=== PATIENT | female | born 1975 | race Hispanic/Latino ===

== ENCOUNTER 2017-03-15 09:14 | Day surgery (SDC) | payer MEDICARE ==
[2017-03-02 10:09] VITALS: BMI 37.3
[2017-03-15] MEDS ORDERED: Bupivacaine 0.5% Inj(30mL) ONE (10:04)
[2017-03-15 10:10] LABS: PH,URINE 5.5 (4.7-8.0); URINE BILIRUBIN NEGATIVE (NEGATIVE); URINE BLOOD SMALL (NEGATIVE); URINE GLUCOSE (UA) NEGATIVE (NEGATIVE); URINE KETONE NEGATIVE (NEGATIVE); URINE LEUKOCYTE ESTERASE NEGATIVE Leu/uL (NEGATIVE); URINE PROTEIN NEGATIVE mg/dL (<30 mg/dL); URINE UROBILINOGEN 0.2 E.U./dL (<1 E.U./dL)
[2017-03-15 10:13] LABS: URINE APPEARANCE SL CLOUDY (CLEAR); URINE COLOR YELLOW (YELLOW)
[2017-03-15 10:18] LABS: URINE RBC 0 - 2 /hpf (0-2)
[2017-03-15] MEDS ORDERED: Propofol 10 mg/ml Inj (20 ML) ONE ×2 (11:03→13:52)
[2017-03-15] MEDS ORDERED: Midazolam 2 MG/2 ML VIAL ONE (11:03)
[2017-03-15] MEDS ORDERED: Rocuronium 10 mg/ml (5 ml) ONE (11:05)
[2017-03-15] MEDS ORDERED: Clindamycin 150 mg/mL Inj ONE (11:36)
[2017-03-15] MEDS ORDERED: Morphine 1 mg/ml preservative-free Inj(Duramorph) ONE (13:29)
[2017-03-15] MEDS ORDERED: Neostigmine Methylsulfate 3mg/3ml Syringe IV ONE (13:33)
[2017-03-15] MEDS ORDERED: Lactated Ringer's 1,000 ML IV SCH (14:00)
--- NOTE | 2017-03-15 14:13 | PCM.SURG1 ---
Surgeon's Initial Post Op Note - Surgeon's Notes Surgeon: Denia Winter MD Carton Marker Machine: Angy Clarke PA-C Type of Anesthesia: General Endo Anesthesia Administered By: Dr. Isabel Pre-Operative Diagnosis: Right knee patellofemoral joint DJD Operative Findings: Tourniquet 72min@300mmHg Post-Operative Diagnosis: same Operation Performed: Right knee patellofemoral joint replacement. decompression lateral meniscal cyst. lateral retinacular release Specimen/Specimens Removed: bone Estimated Blood Loss: EBL {In ML}: 40 Blood Products Given: N/A Drains Used: No Drains Post-Op Condition: Fair Date of Surgery/Procedure: 03/15/17 Time of Surgery/Procedure: 14:12
[2017-03-15] MEDS ORDERED: Oxycodone/Acetaminophen 5/325 mg Tab PO PRN ×2 (14:15→14:25)
[2017-03-15 14:27] VITALS: TEMP 98.1
[2017-03-15] MEDS: HYDROmorphone 0.5 mg/0.5 ml ISec IVP PRN ×3 (14:45→15:20)
[2017-03-15] MEDS ORDERED: HYDROmorphone 0.5 mg/0.5 ml ISec ONE ×3 (14:46→15:21)
--- NOTE | 2017-03-15 15:15 | RAD ---
PROCEDURE: Right Knee Radiographs. HISTORY: s/p PF replacement, in PACU COMPARISON: None. FINDINGS: BONES: There is a partial knee replacement along the anterior lateral femoral condyle JOINTS: Normal. No osteoarthritis. JOINT EFFUSION: None. OTHER FINDINGS: None. IMPRESSION: Negative study
[2017-03-15] MEDS ORDERED: Oxycodone/Acetaminophen 5/325 mg Tab ONE (15:52)
[2017-03-15 16:15] VITALS: BP 111/76; PULSE 92; RESP 18; O2SAT 96
[2017-03-15] MEDS ORDERED: Bupivacaine-Epi 0.25%-1:200,000 PF Inj ONE (16:36)
--- NOTE | 2017-03-16 00:25 | OP ---
PROCEDURE DATE: 03/15/2017 PREOPERATIVE DIAGNOSIS: Right knee patellofemoral arthritis. POSTOPERATIVE DIAGNOSES: Right knee patellofemoral arthritis and right lateral meniscal cyst. PROCEDURE: Right knee patellofemoral arthroplasty with decompression of lateral meniscal cyst. SURGEON: René Winter MD GAUGER DELIVERY: Eliazar Hwang PA-C. Ms. Hwang was present throughout the entire case and assisted in the patient's positioning, retraction during the case and wound closure. TYPE OF ANESTHESIA: General. COMPLICATIONS: None. ESTIMATED BLOOD LOSS: 40 mL. IMPLANT: Waqas, patellofemoral arthroplasty. INDICATION FOR PROCEDURE: This is a 41-year-old female with longstanding anterior right knee pain. Clinical examination was consistent with peripatellar tenderness to palpation, pain with patellofemoral grind, pain at the extremes of knee flexion and full extension. Radiographic examination was consistent with patellofemoral arthrosis. After appeared a failed nonsurgical management including injection, steroid, as well as viscosupplementation injection, as well as medication recommendations were for a right patellofemoral arthroplasty. The risks, benefits, and alternatives for procedure were discussed with the patient and informed consent was obtained. DESCRIPTION OF PROCEDURE: After the surgical site was finally identified in the preoperative holding area, the patient was taken to the operating room and placed supine on the operating table. After administration of general anesthesia, the patient received 900 mg of clindamycin IV. A tourniquet was placed about the right thigh. Care was taken to make sure all bony prominences and nerves were well padded and protected. Venodyne boot was placed in the left lower extremity and the right lower extremity was prepped and draped in usual sterile fashion. The right lower extremity was examined and the tourniquet was inflated. An approximately 10 cm longitudinal midline incision was made. Soft tissues were dissected down to the knee joint and the medial parapatellar arthrotomy was performed being careful not to injure the medial femoral condyle or the medial compartment structures including the meniscus and intrameniscal ligament. Once the knee joint was adequately exposed, the *------* was used to jude our rotation, and this was also confirmed using a trans-epicondyle access, and once this was marked out on the distal femur, step drill was used to drill into the medullary canal and distal femur. The intramedullary guide was inserted and satisfied with the rotation this was pinned into place. Our anterior femoral cut was performed. Once this was done the cut block was removed and our femoral trochlear component was sized. Satisfied with the size, the jig was pinned into place and the distal femur was milled using a halley and our lug holes were drilled. The jig was removed and a trial implant was inserted and then packed into place. The trial was noted to sit distally, flushed with the articular cartilage and flat on the anterior surface of the distal femur. No overlap was appreciated. Our attention was then directed to the patella. The thickness of the patella was measured and a patellar resection was performed. The patellar button was sized and the holes for patellar button were then drilled. A trial patella was then placed and the knee was taken through a range of motion. Patella was noted to have some lateral tilt and this was corrected by performing a lateral retinacular release. At this point, the trial component was removed and the knee joint was pulsed lavaged with antibiotic saline solution. The bony structures were dried and the patella and femoral components were cemented into place. Care was taken to remove all excess cement. Once cement was harden and the wound was inspected for any debris and once again irrigated. The knee was taken through a range of motion and was noted to track normally in the groove. No evidence of any subluxation was appreciated. At this point, the arthrotomy was closed using number 1 Vicryl suture, subcutaneous tissue was closed using 0 Vicryl and 2-0 Vicryl and the skin was closed using the conor. Sterile dressing was applied and knee immobilizer was placed. The patient was awakened from procedure and taken to the recovery room in stable and satisfactory condition. René Winter MD
== END 2017-03-15 16:48 | disposition home or self-care (01) ==
LOC: OR 09:14 → SDS 09:14
PROVIDERS: ATTEND Orthopaedic Surgery
DX: M17.11 Unilateral primary osteoarthritis, right knee (principal); E11.9 Type 2 diabetes mellitus without complications; E66.9 Obesity, unspecified; M23.000 Cystic meniscus, unspecified lateral meniscus, right knee; N28.9 Disorder of kidney and ureter, unspecified; K21.9 Gastro-esophageal reflux disease without esophagitis; G43.909 Migraine, unspecified, not intractable, without status migrainosus; F31.9 Bipolar disorder, unspecified; Z88.1 Allergy status to other antibiotic agents; Z88.0 Allergy status to penicillin; Z88.2 Allergy status to sulfonamides; Z90.49 Acquired absence of other specified parts of digestive tract; Z68.37 Body mass index [BMI] 37.0-37.9, adult
CPT/HCPCS: 27599; 73560; 81001; 84703; 88304; 88311; 97116; 97162; G8978; G8979; G8980; J0131; J1100; J1170; J2250; J2405; J2704; J2710; J3010; J7120

== ENCOUNTER 2017-04-02 14:55 | Inpatient (IN) | payer MEDICARE ==
[2017-04-02] MEDS ORDERED: Morphine 4 mg/ml ISec IVP STA (15:30)
[2017-04-02 16:26] LABS: BASO # 0.02 K/mm3 (0.0-2.0); BASO % 0.1 % (0.0-3.0); EOS % 0.2 % (1.5-5.0); GRAN # 13.47 (1.4-6.5); GRAN % 89.9 % (50.0-68.0); HEMATOCRIT 32.6 % (36.0-48.0); LYMPH # 0.6 (1.2-3.4); LYMPH % 3.7 % (22.0-35.0); MEAN CELL VOLUME 82.7 fl (80.0-105.0); MEAN CORPUSCULAR HEMOGLOBIN 26.4 pg (25.0-35.0); MEAN CORPUSCULAR HGB CONC 31.9 g/dl (31.0-37.0); MEAN PLATELET VOLUME 8.9 fl (7.0-11.0); MONO # 0.9 (0.1-0.6); MONO % 6.1 % (1.0-6.0); PLATELET COUNT 217 10^3/uL (120.0-450.0)
--- NOTE | 2017-04-02 16:28 | ED PDOC ---
Arrival/HPI - General Historian: Patient <Rachael Pendleton A - Last Filed: 04/02/17 19:42> <Andrea,I'Clevelandmendez - Last Filed: 04/03/17 18:39> - General Chief Complaint: Lower Extremity Problem/Injury Time Seen by Provider: 04/02/17 15:06 - History of Present Illness Narrative History of Present Illness (Text): 04/02/17 16:19 42yo female with PMhx of Diabetes biba for right knee pain and drainage from the incision site. Pt notes that she had right knee surgery on 03/15/17. Allie was removed on Tuesday and she started having the drainage and worsening pain same day. States she saw the orthopedist, Dr. Winter for the worsening pain and drainage and was told that is okay. She came to ED today because of the persistent pain. States painful to bear weight. Notes that she takes Tramadol at home without relieve. She denies fever, chills, any other complaint. (Rachael Pendleton A) Past Medical History - Provider Review Nursing Documentation Reviewed: Yes - Past History Past History: Non-Contributing - Infectious Disease Hx of Infectious Diseases: None - Cardiac Hx Cardiac Disorders: Yes - Pulmonary Hx Respiratory Disorders: Yes Hx Asthma: Yes - Neurological Hx Paralysis: No - HEENT Hx HEENT Disorder: No - Renal Hx Renal Disorder: No - Endocrine/Metabolic Hx Diabetes Mellitus Type 2: Yes (diet controlled) - Hematological/Oncological Hx Blood Transfusions: No Hx Blood Transfusion Reaction: No - Integumentary Hx Squamous Cell Carcinoma: Yes (removed) - Musculoskeletal/Rheumatological Hx Musculoskeletal Disorders: Yes (IN JOINTS) - Gastrointestinal Hx Gastroesophageal Reflux: Yes - Genitourinary/Gynecological Hx Genitourinary Disorders: No - Psychiatric Hx Emotional Abuse: No Hx Physical Abuse: No Hx Substance Use: No - Surgical History Hx Musculoskeletal Surgery: Yes (right knee patella replacement) - Anesthesia Hx Anesthesia: Yes Hx Anesthesia Reactions: Yes (NAUSEA) Hx Malignant Hyperthermia: No - Suicidal Assessment Feels Threatened In Home Enviroment: No <Rachael Pendleton A - Last Filed: 04/02/17 19:42> Family/Social History - Physician Review Nursing Documentation Reviewed: Yes Family/Social History: Unknown Family HX Smoking Status: Former Smoker Hx Alcohol Use: No Hx Substance Use: No <Rachael Pendleton A - Last Filed: 04/02/17 19:42> Allergies/Home Meds <chrisRachael Guaman - Last Filed: 04/02/17 19:42> <Danette Mendez - Last Filed: 04/03/17 18:39> Allergies/Adverse Reactions: Allergies erythromycin base [From E-Mycin] Allergy (Severe, Verified 04/02/17 15:15) RASH Penicillins Allergy (Severe, Verified 04/02/17 15:15) ANAPHYLAXIS Sulfa (Sulfonamide Antibiotics) Allergy (Severe, Verified 04/02/17 15:15) RASH/HIVES sulfabenzamide Allergy (Severe, Verified 04/02/17 15:15) RASH Home Medications: Home Meds Medication Instructions Recorded Confirmed Verapamil [Verapamil HCl] 240 mg PO HS 04/22/15 04/02/17 Lamotrigine [Lamictal] 150 mg PO BID 12/19/15 04/02/17 QUEtiapine [SEROquel] 100 mg PO TID 12/19/15 04/02/17 Verapamil [Verapamil HCl] 120 mg PO QAM 12/19/15 04/02/17 Losartan [Cozaar] 25 mg PO QAM 01/05/16 04/02/17 Medroxyprogesterone Acetate 0 mg IM Q90D 01/05/16 04/02/17 [Depo-Provera] Ondansetron [Zofran] 4 mg PO PRN PRN 01/05/16 04/02/17 Pantoprazole Sodium [Protonix] 40 mg PO QAM 01/05/16 04/02/17 QUEtiapine [SEROquel] 400 mg PO HS 01/05/16 04/02/17 Cholecalciferol (Vitamin D3) 2,000 unit PO DAILY 03/02/17 04/02/17 [Vitamin D3] Dulaglutide [Trulicity] 0.75 mg SC MON 03/02/17 04/02/17 Lurasidone HCl [Latuda] 60 mg PO HS 03/02/17 04/02/17 Review of Systems - Physician Review All systems were reviewed & negative as marked: Yes - Review of Systems Constitutional: Normal Eyes: Normal ENT: Normal Respiratory: Normal Cardiovascular: Normal Gastrointestinal: Normal Genitourinary Female: Normal Musculoskeletal: Arthralgias (right knee pain) Skin: Normal Neurological: Normal Endocrine: Normal Hemo/Lymphatic: Normal Psychiatric: Normal <Diru,Happiness A - Last Filed: 04/02/17 19:42> Physical Exam Vital Signs Reviewed: Yes Temperature: Afebrile Blood Pressure: Normal Pulse: Tachycardic Respiratory Rate: Normal Appearance: Positive for: Well-Appearing, Non-Toxic, Comfortable, Other (Appear sleepy but arousable) Pain Distress: None Mental Status: Positive for: Alert and Oriented X 3 - Systems Exam Head: Present: Atraumatic, Normocephalic Pupils: Present: PERRL Extroacular Muscles: Present: EOMI Conjunctiva: Present: Normal Mouth: Present: Moist Mucous Membranes Neck: Present: Normal Range of Motion Respiratory/Chest: Present: Clear to Auscultation, Good Air Exchange. No: Respiratory Distress, Accessory Muscle Use Cardiovascular: Present: Regular Rate and Rhythm, Normal S1, S2. No: Murmurs Abdomen: Present: Normal Bowel Sounds. No: Tenderness, Distention, Peritoneal Signs Back: Present: Normal Inspection Upper Extremity: Present: Normal Inspection. No: Cyanosis, Edema Lower Extremity: Present: Tenderness (right knee), Swelling (right knee), Erythema (Surrounding incision of right knee), Temperature Abnormalties (WArm to touch), Neurovascularly Intact, Other (Well healing incision noted with seranginous discharge noted). No: Edema, Normal ROM (Unable to ascess secondary to pain) Neurological: Present: GCS=15, CN II-XII Intact, Speech Normal Skin: Present: Warm, Dry, Normal Color. No: Rashes Psychiatric: Present: Alert, Oriented x 3, Normal Insight, Normal Concentration <Diru,Happiness A - Last Filed: 04/02/17 19:42> Vital Signs Temp Pulse Pulse Resp BP Pulse Ox 04/02/17 20:11 97.6 F 92 H 92 H 18 80/48 L 04/02/17 19:10 98 H 18 118/62 100 04/02/17 18:30 88 16 99/66 L 98 04/02/17 18:00 92 H 18 80/48 L 98 04/02/17 15:11 97.6 F 114 H 20 98/56 L 95 Medical Decision Making <Diru,Happiness A - Last Filed: 04/02/17 19:42> <Danette Mendez - Last Filed: 12/17/17 18:39> ED Course and Treatment: 04/02/17 19:13 PT in ED for stated history. she was afebrile in ED, but in pain. she have leukocytosis with noted cellulitis on her right knee. Case was DW Dr. Menendez and she recommends that pt be admitted to the hospitalist. The hospitalist recommends DC with the medical healthcare network consultant. Case was ALAN Zaldivar and he accepted patient for admission to Dr. Barlow service. Kayley request Antolin Diallo and Shon. Vancomycin and Clindamycin was ordered. PT is allergic to Penicillin. Increase in her Cr 2.0 was noted. This can be due to dehydration. Pt was hypotensive, although she appears sleepy in ED, likely from hr medications. I L of NS bolus was ordered. Case was also DW the resident. (Rachael Pendleton) - Lab Interpretations Microbiology Results: Microbiology Results 04/02/17 16:30 Blood-Venous Blood Culture - Preliminary NO GROWTH AFTER 24 HOURS 04/02/17 16:00 Blood-Venous Blood Culture - Preliminary NO GROWTH AFTER 24 HOURS Lab Results: 04/02/17 16:00 04/02/17 16:00 Lab Results 04/02/17 16:00: Sodium 134, Potassium 4.0, Chloride 101, Carbon Dioxide 18 L, Anion Gap 19, BUN 24 H, Creatinine 2.0 H, Est GFR ( Amer) 33, Est GFR ( Non-Af Amer) 28, Random Glucose 152 H, Calcium 9.2, Total Bilirubin 1.0, AST 50 H, ALT 38, Alkaline Phosphatase 88, Total Protein 7.1, Albumin 4.0, Globulin 3.1 , Albumin/Globulin Ratio 1.3 04/02/17 16:00: WBC 15.0 H D, RBC 3.94, Hgb 10.4 L, Hct 32.6 L, MCV 82.7, MCH 26.4, MCHC 31.9, RDW 16.0 H, Plt Count 217, MPV 8.9, Gran % 89.9 H, Lymph % ( Auto) 3.7 L, [place] % (Auto) 6.1 H, Eos % (Auto) 0.2 L, Baso % (Auto) 0.1, Gran # 13.47 H, Lymph # 0.6 L, [place] # 0.9 H, Eos # 0.0, Baso # 0.02, Neutrophils % ( Manual) 93 H, Lymphocytes % (Manual) 5 L, Monocytes % (Manual) 2 - RAD Interpretation Radiology Orders: 04/02/17 15:29 KNEE RIGHT 2 VIEWS (AP & LAT) [RAD] Stat - Medication Orders Current Medication Orders: Acetaminophen (Tylenol 325mg Tab) 650 mg PO Q6H PRN PRN Reason: Fever >100.4 F Last Admin: 04/03/17 06:04 Dose: 650 mg MAR Pain/Vitals Document 04/03/17 06:04 RR (Rec: 04/03/17 06:04 RR [id number]) Pain Reassessment Is This A Pain ReAssessment? No Sleep Is patient sleeping during reassessment? No Presence of Pain Presence of Pain Yes Pain Scale Used Pain Scale Used Numeric Location Left, Right or Bilateral Right Upper or Lower Lower Pain Location Body Site Knee Description Constant Intensity 8 Scale Used Numeric Pain Behavior Withdrawal from Touch Grasping Site Facial Grimacing Heparin Sodium (Porcine) (Heparin) 5,000 units SC Q12 KYMBERLY PRN Reason: Protocol Last Admin: 04/03/17 09:20 Dose: 5,000 units Subcutaneous Administrations Document 04/03/17 09:20 LO (Rec: 04/03/17 09:21 LO [id number]) Injection Site MAR Injection Site Umbilicus Charges for Administration # of Subcutaneous Administrations 1 Sodium Chloride (Sodium Chloride 0.9%) 1,000 mls @ 999 mls/hr IV .Q1H1M [facility] Last Admin: 04/02/17 23:39 Dose: 999 mls/hr eMAR Start Stop Document 04/02/17 23:39 RR (Rec: 04/02/17 23:39 RR [id number]) Intravenous Solution Start Date 04/02/17 Start Time 23:39 Sodium Chloride (Sodium Chloride 0.9%) 1,000 mls @ 125 mls/hr IV .Q8H [facility] Last Admin: 04/03/17 06:02 Dose: 125 mls/hr eMAR Start Stop Document 04/03/17 06:02 RR (Rec: 04/03/17 06:02 RR [id number]) Intravenous Solution Start Date 04/03/17 Start Time 06:02 Meropenem (Merrem Iv 1 Gm Premix) 50 mls @ 100 mls/hr IVPB Q8 KYMBERLY PRN Reason: Protocol Stop: 04/17/17 09:27 Last Admin: 04/03/17 13:06 Dose: 100 mls/hr eMAR Start Stop Document 04/03/17 13:06 LO (Rec: 04/03/17 13:07 LO [id number]) Intravenous Solution Start Date 04/03/17 Start Time 13:06 End Date 04/03/17 End time 13:36 Total Infusion Time 30 Daptomycin 590 mg/ Sodium (Chloride) 100 mls @ 200 mls/hr IV Q24H KYMBERLY Stop: 04/17/17 11:01 Last Admin: 04/03/17 11:24 Dose: 200 mls/hr eMAR Start Stop Document 04/03/17 11:24 LO (Rec: 04/03/17 11:24 LO [id number]) Intravenous Solution Start Date 04/03/17 Start Time 11:24 End Date 04/03/17 End time 11:54 Total Infusion Time 30 Insulin Human Regular (Humulin R Low) 0 units SC ACHS KYMBERLY PRN Reason: Protocol Last Admin: 04/03/17 17:03 Dose: Not Given Non-Admin Reason: Blood Sugar Parameter MAR Blood Glucose Document 04/03/17 17:03 LO (Rec: 04/03/17 17:04 LO [id number]) Blood Glucose Finger Stick Blood Glucose (70-120) 109 Lamotrigine (Lamictal) 100 mg PO BID [facility] Last Admin: 04/03/17 17:03 Dose: 100 mg Behavioural Document 04/03/17 17:03 LO (Rec: 04/03/17 17:03 LO [id number]) Maintenance Maintenance Dose No Nonmedicinal Nonmedicinal Interventions Therapeutic Communication Behavior Behavior for Medication: Anxiety Lamotrigine (Lamictal) 50 mg PO BID [facility] Last Admin: 04/03/17 17:03 Dose: 50 mg Behavioural Document 04/03/17 17:03 LO (Rec: 04/03/17 17:03 LO [id number]) Maintenance Maintenance Dose No Nonmedicinal Nonmedicinal Interventions Therapeutic Communication Behavior Behavior for Medication: Anxiety Lurasidone Hcl [ (Latuda] 60 Mg) 60 mg PO [facility] Oxycodone/Acetaminophen (Percocet 5/325 Mg Tab) 1 tab PO Q4H PRN PRN Reason: Pain, moderate (4-7) Stop: 04/06/17 09:48 Last Admin: 04/03/17 15:27 Dose: 1 tab MAR Pain Assessment Document 04/03/17 15:27 LO (Rec: 04/03/17 15:27 LO [id number]) Pain Reassessment Is this a pain reassessment? No Sleep Is patient sleeping during reassessment? No Presence of Pain Presence of Pain Yes Pantoprazole Sodium (Protonix Inj) 40 mg IVP DAILY [facility] Last Admin: 04/03/17 09:24 Dose: 40 mg IVP Administration Document 04/03/17 09:24 LO (Rec: 04/03/17 09:24 LO [id number]) Charges for Administration # of IVP Administrations 1 Quetiapine Fumarate (Seroquel) 100 mg PO TID [facility] Last Admin: 04/03/17 17:02 Dose: 100 mg Behavioural Document 04/03/17 17:02 LO (Rec: 04/03/17 17:02 LO [id number]) Maintenance Maintenance Dose No Nonmedicinal Nonmedicinal Interventions Therapeutic Communication Behavior Behavior for Medication: Anxiety Quetiapine Fumarate (Seroquel) 400 mg PO [facility] Last Admin: 04/02/17 22:33 Dose: 400 mg Behavioural Document 04/02/17 22:33 RR (Rec: 04/02/17 22:33 RR [id number]) Maintenance Maintenance Dose Yes Re-Assess: Reassess Psych Meds Document 04/02/17 23:33 RR (Rec: 04/03/17 01:29 RR [id number]) Reassess Psych Med Effective Discontinued Medications Clindamycin Phosphate 600 mg/ (Sodium Chloride) 54 mls @ 108 mls/hr IVPB STAT STA PRN Reason: Protocol Stop: 04/02/17 18:30 Last Admin: 04/02/17 18:40 Dose: 108 mls/hr eMAR Start Stop Document 04/02/17 18:40 SZA (Rec: 04/02/17 18:55 SZA [id number]) Intravenous Solution Start Date 04/02/17 Start Time 18:40 End Date 04/02/17 End time 19:20 Total Infusion Time 40 Vancomycin HCl (Vancomycin 1gm) 1 gm in 250 mls @ 167 mls/hr IVPB STAT STA PRN Reason: Protocol Stop: 04/02/17 19:29 Last Admin: 04/02/17 23:40 Dose: 167 mls/hr eMAR Start Stop Document 04/02/17 23:40 RR (Rec: 04/02/17 23:40 RR [id number]) Intravenous Solution Start Date 04/02/17 Start Time 22:50 End Date 04/03/17 End time 00:20 Total Infusion Time 90 Sodium Chloride (Sodium Chloride 0.9%) 1,000 mls @ 100 mls/hr IV .Q10H [facility] Last Admin: 04/02/17 18:56 Dose: 100 mls/hr eMAR Start Stop Document 04/02/17 18:56 SZA (Rec: 04/02/17 18:56 [id number]) Intravenous Solution Start Date 04/02/17 Start Time 18:56 Sodium Chloride (Sodium Chloride 0.9%) 1,000 mls @ 999 mls/hr IV .Q1H1M STA Stop: 04/02/17 20:12 Last Admin: 04/02/17 18:40 Dose: 999 mls/hr eMAR Start Stop Document 04/02/17 18:40 SZA (Rec: 04/02/17 19:36 [id number]) Intravenous Solution Start Date 04/02/17 Start Time 18:40 End Date 04/02/17 End time 19:40 Total Infusion Time 60 Morphine Sulfate (Morphine) 4 mg IVP STAT STA Stop: 04/02/17 15:31 Last Admin: 04/02/17 16:06 Dose: 4 mg MAR Pain Assessment Document 04/02/17 16:06 SZA (Rec: 04/02/17 16:06 [id number]) Pain Reassessment Is this a pain reassessment? No Sleep Is patient sleeping during reassessment? No Presence of Pain Presence of Pain Yes Pain Scale Used Pain Scale Used Numeric IVP Administration Document 04/02/17 16:06 [place] (Rec: 04/02/17 16:06 [id number]) Charges for Administration # of IVP Administrations 1 Re-Assess: EDIS Pain Assessment Document 04/02/17 17:06 SZA (Rec: 04/02/17 17:36 SZA [id number]) Pain Reassessment Is this a pain reassessment? No Sleep Is patient sleeping during reassessment? No Presence of Pain Presence of Pain Yes Pain Scale Used Pain Scale Used Numeric Description Description Intermittent Intensity of Pain at present 5 Morphine Sulfate (Morphine) 2 mg IVP Q4H PRN PRN Reason: Pain, severe (8-10) Stop: 04/03/17 10:00 Last Admin: 04/03/17 07:04 Dose: 2 mg [facility] Pain Assessment Document 04/03/17 07:04 RR (Rec: 04/03/17 07:06 RR [id number]) Pain Reassessment Is this a pain reassessment? No Sleep Is patient sleeping during reassessment? No Presence of Pain Presence of Pain Yes Pain Scale Used Pain Scale Used Numeric Location Left, Right or Bilateral Right Pain Location Body Site Knee Description Description Constant Intensity of Pain at present 8 Pain Behavior Moaning Guarding Grasping Site Facial Grimacing Alleviating Factors/Management Medication Techniques Alleviating Factors Medication IVP Administration Document 04/03/17 07:04 RR (Rec: 04/03/17 07:06 RR [id number]) Charges for Administration # of IVP Administrations 1 Pneumococcal Polyvalent Vaccine (Pneumovax 23 Vaccine) 0.5 ml IM .ONCE ONE Stop: 04/02/17 20:35 Potassium Chloride (Potassium Chloride Oral Soln) 40 meq PO STAT STA Stop: 04/03/17 10:51 Last Admin: 04/03/17 10:55 Dose: 40 meq - PA / PAINT POURER / Resident Statement / has reviewed & agrees with the documentation as recorded. <Danette Mendez - Last Filed: 04/03/17 18:39> Disposition/Present on Arrival - Present on Arrival Any Indicators Present on Arrival: No History of DVT/PE: No History of Uncontrolled Diabetes: No Urinary Catheter: No History of Decub. Ulcer: No History Surgical Site Infection Following: None - Disposition Have Diagnosis and Disposition been Completed?: Yes Disposition Time: 18:20 <Rachael Pendleton - Last Filed: 04/02/17 19:42> <Danette Mendez - Last Filed: 04/03/17 18:39> - Disposition Diagnosis: Cellulitis of knee, Renal insufficiency, Dehydration Disposition: HOSPITALIZED Patient Problems: Current Active Problems Problem Status Onset Cellulitis of knee Acute Dehydration Acute Renal insufficiency Acute Condition: FAIR
--- NOTE | 2017-04-02 16:42 | RAD ---
PROCEDURE: Right Knee Radiographs. HISTORY: knee pain COMPARISON: 03/15/2017 FINDINGS: BONES: There is a partial knee joint replacement in the femoral groove. This is unchanged in position JOINTS: Normal. No osteoarthritis. JOINT EFFUSION: None. OTHER FINDINGS: None. IMPRESSION: There is a partial knee joint replacement in the femoral groove. This is unchanged in position
[2017-04-02 17:12] LABS: NEUTROPHIL 93 % (50.0-70.0)
[2017-04-02 17:38] LABS: ALB/GLOB RATIO 1.3 (1.1-1.8); CALCIUM 9.2 mg/dL (8.4-10.5); TOTAL PROTEIN 7.1 g/dL (5.8-8.3)
[2017-04-02] MEDS ORDERED: Vancomycin 1gm in NS 250ml 1 GM/250 ML BAG IVPB STA (18:00)
[2017-04-02] MEDS ORDERED: Sodium Chloride 0.9% 1,000 ML IV STA (19:12)
--- NOTE | 2017-04-02 19:39 | CP.PCM.HP ---
<Jer Mai - Last Filed: 04/02/17 20:21> History of Present Illness - History of Present Illness History of Present Illness: cc: right knee pain HPI: Patient is a 42 year-old female with past medical history of diabetes mellitus type 2, bipolar disorder, migraines and hypertension who presents c/o right knee pain. She reports that she underwent right knee surgery with Dr. Winter on 03/15/17 and since Tuesday, March 28 she has had increased right knee pain and drainage. She reports having seen Dr. Winter on Tuesday and speaking to him on Tuesday however since then the drainage and pain has become considerably worse and she was instructed to come to the emergency room for further evaluation. She reports that her right knee and calf had swelled up and she has been unable to put any weight on her right leg. Patient states that she is unable to walk and she has increased pain with movement of her right leg. She denies fever, chills, cough, abdominal pain, nausea, vomiting, chest pain, palpitations, SOB, focal weakness, numbness, tingling. 12point ROS as per HPI above otherwise negative PMH: as stated above PSH: breast reduction, cholecystectomy, R meniscus surgery Allergies: erythromycin, penicillin, sulfa Social Hx: Former smoker; Denies alcohol and illicit drug use Family Hx: reviewed, non-contributory Present on Admission - Present on Admission Any Indicators Present on Admission: No Past Patient History - Infectious Disease Hx of Infectious Diseases: None - Past Social History Smoking Status: Former Smoker - CARDIAC Hx Cardiac Disorders: Yes - PULMONARY Hx Respiratory Disorders: Yes Hx Asthma: Yes - NEUROLOGICAL Hx Paralysis: No - HEENT Hx HEENT Problems: No - RENAL Hx Chronic Kidney Disease: No - ENDOCRINE/METABOLIC Hx Diabetes Mellitus Type 2: Yes (diet controlled) - HEMATOLOGICAL/ONCOLOGICAL Hx Blood Transfusions: No Hx Blood Transfusion Reaction: No - INTEGUMENTARY Hx Squamous Cell: Yes (removed) - MUSCULOSKELETAL/RHEUMATOLOGICAL Hx Musculoskeletal Disorders: Yes (IN JOINTS) - GASTROINTESTINAL Hx Gastroesophageal Reflux: Yes - GENITOURINARY/GYNECOLOGICAL Hx Genitourinary Disorders: No - PSYCHIATRIC Hx Emotional Abuse: No Hx Physical Abuse: No Hx Substance Use: No - SURGICAL HISTORY Hx Musculoskeletal Surgery: Yes (right knee patella replacement) - ANESTHESIA Hx Anesthesia: Yes Hx Anesthesia Reactions: Yes (NAUSEA) Hx Malignant Hyperthermia: No Meds Allergies/Adverse Reactions: Allergies Allergy/AdvReac Type Severity Reaction Status Date / Time erythromycin base Allergy Severe RASH Verified 04/02/17 15:15 [From E-Mycin] Penicillins Allergy Severe ANAPHYLAXIS Verified 04/02/17 15:15 Sulfa (Sulfonamide Allergy Severe RASH/HIVES Verified 04/02/17 15:15 Antibiotics) sulfabenzamide Allergy Severe RASH Verified 04/02/17 15:15 Physical Exam - Constitutional Appears: No Acute Distress - Head Exam Head Exam: ATRAUMATIC, NORMAL INSPECTION, NORMOCEPHALIC - Eye Exam Eye Exam: EOMI, PERRL - ENT Exam ENT Exam: Mucous Membranes Dry - Neck Exam Neck exam: Positive for: Normal Inspection. Negative for: Lymphadenopathy, Tenderness, Thyromegaly - Respiratory Exam Respiratory Exam: Clear to Auscultation Bilateral. absent: Rales, Rhonchi, Wheezes - Cardiovascular Exam Cardiovascular Exam: RRR, +S1, +S2. absent: Diastolic murmur, Gallop, JVD, Rubs , Systolic Murmur - GI/Abdominal Exam GI & Abdominal Exam: Normal Bowel Sounds, Soft. absent: Distended, Firm, Guarding, Rebound, Tenderness - Extremities Exam Additional comments: right knee erythema, swelling and increased warmth; serosanguineous drainage - Neurological Exam Neurological exam: Alert, CN II-XII Intact, Oriented x3 - Psychiatric Exam Psychiatric exam: Normal Affect, Normal Mood - Skin Skin Exam: Dry, Intact, Normal Color, Warm Results - Vital Signs Recent Vital Signs: Last Vital Signs Temp 97.6 F 04/02/17 15:11 Pulse 92 H 04/02/17 18:00 Resp 18 04/02/17 18:00 BP 80/48 L 04/02/17 18:00 Pulse Ox 98 04/02/17 18:00 - Labs Result Diagrams: 04/02/17 16:00 04/02/17 16:00 Assessment & Plan - Assessment and Plan (Free Text) Plan: 42yo female with history of bipolar disorder, DM2 presents c/o right knee pain s /p recent right knee arthroplasty 1. Right knee pain -Recent right knee arthroplasty with Dr. Winter on 03/15/17 -Right knee xray reviewed; revealed no joint effusion, partial knee joint replacement in the femoral groove -Notable leukocytosis of 15, however patient afebrile -Procalcitonin pending -Panculture -IV antibiotics with clindamycin and vancomycin -Tylenol PRN for fevers -IVF hydration -Lower extremity duplex pending to r/o DVT -Physical therapy evaluation -Ortho consulted - Dr. Winter -ID consulted - Dr. Diallo 2. Acute kidney injury -Likely secondary to prerenal SUNITA however urine lytes pending -IVF hydration 3. Diabetes mellitus type 2 -Consistent carb diet -Fingersticks ACHS -Humulin ISS -A1C pending 4. Bipolar disorder -Continue home medication 5. GI/DVT Prophylaxis -Protonix/heparin <Chiki Zaldivar - Last Filed: 04/03/17 08:59> Results - Vital Signs Recent Vital Signs: Last Vital Signs Temp 98.6 F 04/03/17 08:06 Pulse 98 H 04/03/17 08:06 Resp 20 04/03/17 08:06 BP 107/63 04/03/17 08:06 Pulse Ox 97 04/03/17 08:06 - Labs Result Diagrams: 04/03/17 06:45 04/03/17 06:45 Labs: Laboratory Results - last 24 hr 04/02/17 04/02/17 04/02/17 21:30 21:30 22:11 WBC RBC Hgb Hct MCV MCH MCHC RDW Plt Count MPV Gran % Lymph % (Auto) [place] % (Auto) Eos % (Auto) Baso % (Auto) Gran # Lymph # [place] # Eos # Baso # Sodium Potassium Chloride Carbon Dioxide Anion Gap BUN Creatinine Est GFR ( Amer) Est GFR (Non-Af Amer) POC Glucose (mg/dL) 134 H Random Glucose Calcium Total Bilirubin AST ALT Alkaline Phosphatase Total Protein Albumin Globulin Albumin/Globulin Ratio Urine Color Yellow Urine Appearance Clear Urine pH 5.5 Ur Specific Norman >= 1.030 Urine Protein 30 H Urine Glucose (UA) Negative Urine Ketones Negative Urine Blood Small H Urine Nitrate Negative Urine Bilirubin Negative Urine Urobilinogen 0.2 Ur Leukocyte Esterase Negative Urine RBC 1 - 3 Urine WBC 1 - 3 Ur Epithelial Cells 3 - 4 Urine Bacteria Few Hyaline Casts 0 - 2 Ur Random Creatinine 308 Ur Random Sodium 35 04/03/17 04/03/17 04/03/17 06:45 06:45 07:38 WBC 10.4 D RBC 3.50 Hgb 9.2 L Hct 29.2 L MCV 83.4 MCH 26.3 MCHC 31.5 RDW 15.9 H Plt Count 194 MPV 9.0 Gran % 84.6 H Lymph % (Auto) 7.2 L Blackford % (Auto) 7.3 H Eos % (Auto) 0.8 L Baso % (Auto) 0.1 Gran # 8.84 H Lymph # 0.8 L Blackford # 0.8 H Eos # 0.1 Baso # 0.01 Sodium 139 Potassium 3.4 L Chloride 105 Carbon Dioxide 25 Anion Gap 13 BUN 16 Creatinine 1.1 Est GFR ( Amer) > 60 Est GFR (Non-Af Amer) 55 POC Glucose (mg/dL) 123 H Random Glucose 142 H Calcium 9.0 Total Bilirubin 0.8 AST 49 H ALT 45 Alkaline Phosphatase 96 Total Protein 6.2 Albumin 3.3 Globulin 2.9 Albumin/Globulin Ratio 1.1 Urine Color Urine Appearance Urine pH Ur Specific Norman Urine Protein Urine Glucose (UA) Urine Ketones Urine Blood Urine Nitrate Urine Bilirubin Urine Urobilinogen Ur Leukocyte Esterase Urine RBC Urine WBC Ur Epithelial Cells Urine Bacteria Hyaline Casts Ur Random Creatinine Ur Random Sodium Assessment & Plan - Assessment and Plan (Free Text) Plan: discussed w/ resident at length went over meds labs xrays consults tests plans orders questions
[2017-04-02] MEDS ORDERED: Sodium Chloride 0.9% 1,000 ML IV SCH (20:00)
[2017-04-02 20:33] VITALS: BMI 31.2
[2017-04-02] MEDS ORDERED: Influenza Vaccine 60 mcg/0.5 mL SYR (4YR UP) IM ONE (20:34)
[2017-04-02] MEDS ORDERED: Pneumococcal 23-Valent Vaccine IM ONE (20:34)
[2017-04-02] MEDS ORDERED: QUETIAPINE 400 MG PO SCH (22:00)
[2017-04-02 22:01] LABS: PH,URINE 5.5 (4.7-8.0); URINE BILIRUBIN NEGATIVE (NEGATIVE); URINE BLOOD SMALL (NEGATIVE); URINE GLUCOSE (UA) NEGATIVE (NEGATIVE); URINE KETONE NEGATIVE (NEGATIVE); URINE LEUKOCYTE ESTERASE NEGATIVE Leu/uL (NEGATIVE); URINE PROTEIN 30 mg/dL (<30 mg/dL); URINE UROBILINOGEN 0.2 E.U./dL (<1 E.U./dL)
[2017-04-02 22:05] LABS: URINE APPEARANCE CLEAR (CLEAR); URINE COLOR YELLOW (YELLOW)
[2017-04-02 22:13] LABS: URINE BACTERIA FEW (NEG)
[2017-04-02] MEDS: Insulin Reg-LOW-Coverage SC SCH (22:13)
[2017-04-02] MEDS: Sodium Chloride 0.9% 1,000 ML IV SCH ×2 (22:17→23:39)
[2017-04-02] MEDS: Morphine 2 mg/ml ISec IVP PRN (22:32)
[2017-04-03] MEDS: Morphine 2 mg/ml ISec IVP PRN ×2 (03:34→07:04)
[2017-04-03] MEDS: Sodium Chloride 0.9% 1,000 ML IV SCH ×3 (06:02→21:13)
[2017-04-03 07:03] LABS: BASO # 0.01 K/mm3 (0.0-2.0); BASO % 0.1 % (0.0-3.0); EOS # 0.1 (0.0-0.7); EOS % 0.8 % (1.5-5.0); GRAN # 8.84 (1.4-6.5); GRAN % 84.6 % (50.0-68.0); HEMATOCRIT 29.2 % (36.0-48.0); LYMPH # 0.8 (1.2-3.4); LYMPH % 7.2 % (22.0-35.0); MEAN CELL VOLUME 83.4 fl (80.0-105.0); MEAN CORPUSCULAR HEMOGLOBIN 26.3 pg (25.0-35.0); MEAN CORPUSCULAR HGB CONC 31.5 g/dl (31.0-37.0); MONO # 0.8 (0.1-0.6); MONO % 7.3 % (1.0-6.0); RED CELL DISTRIBUTION WIDTH 15.9 % (11.5-14.5); WHITE BLOOD COUNT 10.4 10^3/ul (4.5-11.0)
[2017-04-03] MEDS: Insulin Reg-LOW-Coverage SC SCH ×4 (07:55→22:49)
[2017-04-03 08:23] LABS: ALB/GLOB RATIO 1.1 (1.1-1.8); ALKALINE PHOSPHATASE 96 U/L (38-126); ALT/SGPT 45 U/L (7-56); AST/SGOT 49 U/L (14-36); BILIRUBIN,TOTAL 0.8 mg/dL (0.2-1.3); BLOOD UREA NITROGEN 16 mg/dL (7-21); CARBON DIOXIDE 25 mmol/L (21-33); CHLORIDE 105 mmol/L (98-107); GFR AFRICAN-AMERICAN > 60; GLUCOSE,RANDOM 142 mg/dL (70-110); POTASSIUM 3.4 mmol/L (3.6-5.0); SODIUM 139 mmol/L (132-148); TOTAL PROTEIN 6.2 g/dL (5.8-8.3)
--- NOTE | 2017-04-03 08:57 | RAD ---
HISTORY: admission COMPARISON: 12/31/2016 FINDINGS: LUNGS: No active pulmonary disease. PLEURA: No significant pleural effusion identified, no pneumothorax apparent. CARDIOVASCULAR: Normal. OSSEOUS STRUCTURES: No significant abnormalities. VISUALIZED UPPER ABDOMEN: Normal. OTHER FINDINGS: None. IMPRESSION: No active disease.
[2017-04-03] MEDS ORDERED: LAMOTRIGINE 150 MG PO SCH (10:00)
[2017-04-03] MEDS ORDERED: Vancomycin 1gm in NS 250ml 1 GM/250 ML BAG IVPB SCH (10:00)
[2017-04-03] MEDS: Meropenem IV 1 gm in NS 50 ML IVPB SCH ×3 (10:46→22:20)
[2017-04-03] MEDS: Oxycodone/Acetaminophen 5/325 mg Tab PO PRN ×3 (10:50→21:11)
[2017-04-03] MEDS ORDERED: Potassium Chloride 40 mEq/30 ml LIQ UD PO STA (10:50)
[2017-04-03] MEDS ORDERED: DAPTOmycin 500 mg Inj (Cubicin) IV SCH (11:00)
--- NOTE | 2017-04-03 11:00 | CP.PCM.PN ---
<Matias Paulson - Last Filed: 04/03/17 10:51> Subjective - Date & Time of Evaluation Date of Evaluation: 04/03/17 Time of Evaluation: 08:00 - Subjective Subjective: Medicine progress note: Pt seen and examined at bedside. No acute events overnight. Pt complains of severe knee pain but states that the redness has improved. N other complaints. 12 Point ROS performed and negative other than stated above. Objective - Vital Signs/Intake and Output Vital Signs (last 24 hours): Temp Pulse Resp BP Pulse Ox 98.6 F 98 H 20 107/63 97 04/03/17 08:06 04/03/17 08:06 04/03/17 08:06 04/03/17 08:06 04/03/17 08:06 Intake and Output: 04/03/17 04/03/17 06:59 18:59 Intake Total 1999 Balance 1999 480 - Medications Medications: Current Medications Acetaminophen (Tylenol 325mg Tab) 650 mg PO Q6H PRN PRN Reason: Fever >100.4 F Last Admin: 04/03/17 06:04 Dose: 650 mg Daptomycin (Cubicin) 590 mg 6 mg/kg (590 mg) IV Q24H KYMBERLY PRN Reason: Protocol Stop: 04/17/17 11:01 Heparin Sodium (Porcine) (Heparin) 5,000 units SC Q12 KYMBERLY PRN Reason: Protocol Last Admin: 04/03/17 09:20 Dose: 5,000 units Sodium Chloride (Sodium Chloride 0.9%) 1,000 mls @ 999 mls/hr IV .Q1H1M [facility] Last Admin: 04/02/17 23:39 Dose: 999 mls/hr Sodium Chloride (Sodium Chloride 0.9%) 1,000 mls @ 125 mls/hr IV .Q8H KYMBERLY Last Admin: 04/03/17 06:02 Dose: 125 mls/hr Meropenem (Merrem Iv 1 Gm Premix) 50 mls @ 100 mls/hr IVPB Q8 KYMBERLY PRN Reason: Protocol Stop: 04/17/17 09:27 Daptomycin 590 mg/ Sodium (Chloride) 100 mls @ 200 mls/hr IV Q24H [facility]MBER[facility] Stop: 04/17/17 11:01 Insulin Human Regular (Humulin R Low) 0 units SC ACHS KYMBERLY PRN Reason: Protocol Last Admin: 04/03/17 07:55 Dose: Not Given Lamotrigine (Lamictal) 100 mg PO BID [facility] Last Admin: 04/03/17 09:22 Dose: 100 mg Lamotrigine (Lamictal) 50 mg PO BID [facility] Last Admin: 04/03/17 09:23 Dose: 50 mg Lurasidone Hcl [ (Latuda] 60 Mg) 60 mg PO [facility] Oxycodone/Acetaminophen (Percocet 5/325 Mg Tab) 1 tab PO Q4H PRN PRN Reason: Pain, moderate (4-7) Stop: 04/06/17 09:48 Pantoprazole Sodium (Protonix Inj) 40 mg IVP DAILY [facility] Last Admin: 04/03/17 09:24 Dose: 40 mg Potassium Chloride (Potassium Chloride Oral Soln) 40 meq PO STAT STA Stop: 04/03/17 10:51 Quetiapine Fumarate (Seroquel) 100 mg PO TID [facility] Last Admin: 04/03/17 09:25 Dose: 100 mg Quetiapine Fumarate (Seroquel) 400 mg PO HS [facility] Last Admin: 04/02/17 22:33 Dose: 400 mg - Labs Labs: 04/03/17 06:45 04/03/17 06:45 - Constitutional Appears: No Acute Distress - Head Exam Head Exam: ATRAUMATIC, NORMOCEPHALIC - Eye Exam Eye Exam: EOMI - ENT Exam ENT Exam: Mucous Membranes Moist - Respiratory Exam Respiratory Exam: Clear to Ausculation Bilateral. absent: Rales, Wheezes - Cardiovascular Exam Cardiovascular Exam: REGULAR RHYTHM, RRR, +S1, +S2 - GI/Abdominal Exam GI & Abdominal Exam: Soft, Normal Bowel Sounds. absent: Tenderness - Extremities Exam Extremities Exam: absent: Calf Tenderness, Pedal Edema Additional comments: RLE: Knee: erythema and minor drainage near incision site - Neurological Exam Neurological Exam: Alert, Awake, Oriented x3 - Psychiatric Exam Psychiatric exam: Normal Affect, Normal Mood - Skin Skin Exam: Dry, Intact, Warm Assessment and Plan - Assessment and Plan (Free Text) Assessment: 42yo female with history of bipolar disorder, DM2 presents c/o right knee pain s /p recent right knee arthroplasty 1. Right knee pain - WBC decreased 15--> 10.4; afberile -Recent right knee arthroplasty with Dr. Winter on 03/15/17 -Right knee xray reviewed; revealed no joint effusion, partial knee joint replacement in the femoral groove -Panculture -IV antibiotics with clindamycin and vancomycin discontinued --> started Aleisha and dapto as per ID -Tylenol PRN for fevers -IVF hydration -Lower extremity duplex pending to r/o DVT - prelim negative -Physical therapy evaluation -Ortho consulted - Dr. Winter - awaiting further recs -ID consulted - Dr. Diallo - started Aleisha and dapto as per ID; follow up CRP , ESR and HIV 2. Hypokalemia - K of 3.4 - Repleted with Kcl 40meq x 1 - Will replete as needed 2. Acute kidney injury - resolved -Likely secondary to prerenal SUNITA however urine lytes pending -IVF hydration 3. Diabetes mellitus type 2 -Consistent carb diet -Fingersticks ACHS -Humulin ISS -A1C pending 4. Bipolar disorder -Continue home medication 5. GI/DVT Prophylaxis -Protonix/heparin <Chiki Zaldivar - Last Filed: 04/03/17 11:06> Objective - Vital Signs/Intake and Output Vital Signs (last 24 hours): Temp Pulse Resp BP Pulse Ox 98.6 F 98 H 20 107/63 97 04/03/17 08:06 04/03/17 08:06 04/03/17 08:06 04/03/17 08:06 04/03/17 08:06 Intake and Output: 04/03/17 04/03/17 06:59 18:59 Intake Total 1999 480 Balance 1999 480 - Medications Medications: Current Medications Acetaminophen (Tylenol 325mg Tab) 650 mg PO Q6H PRN PRN Reason: Fever >100.4 F Last Admin: 04/03/17 06:04 Dose: 650 mg Daptomycin (Cubicin) 590 mg 6 mg/kg (590 mg) IV Q24H [facility]MBERLY PRN Reason: Protocol Stop: 04/17/17 11:01 Heparin Sodium (Porcine) (Heparin) 5,000 units SC Q12 [facility]MBERLY PRN Reason: Protocol Last Admin: 04/03/17 09:20 Dose: 5,000 units Sodium Chloride (Sodium Chloride 0.9%) 1,000 mls @ 999 mls/hr IV .Q1H1M [facility] Last Admin: 04/02/17 23:39 Dose: 999 mls/hr Sodium Chloride (Sodium Chloride 0.9%) 1,000 mls @ 125 mls/hr IV .Q8H [facility] Last Admin: 04/03/17 06:02 Dose: 125 mls/hr Meropenem (Merrem Iv 1 Gm Premix) 50 mls @ 100 mls/hr IVPB Q8 KYMBERLY PRN Reason: Protocol Stop: 04/17/17 09:27 Last Admin: 04/03/17 10:46 Dose: 100 mls/hr Daptomycin 590 mg/ Sodium (Chloride) 100 mls @ 200 mls/hr IV Q24H [facility] Stop: 04/17/17 11:01 Insulin Human Regular (Humulin R Low) 0 units SC ACHS KYMBERLY PRN Reason: Protocol Last Admin: 04/03/17 07:55 Dose: Not Given Lamotrigine (Lamictal) 100 mg PO BID [facility] Last Admin: 04/03/17 09:22 Dose: 100 mg Lamotrigine (Lamictal) 50 mg PO BID [facility] Last Admin: 04/03/17 09:23 Dose: 50 mg Lurasidone Hcl [ (Latuda] 60 Mg) 60 mg PO [facility] Oxycodone/Acetaminophen (Percocet 5/325 Mg Tab) 1 tab PO Q4H PRN PRN Reason: Pain, moderate (4-7) Stop: 04/06/17 09:48 Last Admin: 04/03/17 10:50 Dose: 1 tab Pantoprazole Sodium (Protonix Inj) 40 mg IVP DAILY [facility] Last Admin: 04/03/17 09:24 Dose: 40 mg Quetiapine Fumarate (Seroquel) 100 mg PO TID [facility] Last Admin: 04/03/17 09:25 Dose: 100 mg Quetiapine Fumarate (Seroquel) 400 mg PO HS [facility] Last Admin: 04/02/17 22:33 Dose: 400 mg - Labs Labs: 04/03/17 06:45 04/03/17 06:45 Assessment and Plan - Assessment and Plan (Free Text) Plan: discussed w/ resident at length went over labs xrays tests meds orders consults plans reviewed
--- NOTE | 2017-04-03 19:55 | CON ---
DATE: 04/03/2017 The patient seen in room 368 bed 1. CHIEF COMPLAINT: Right knee pain times several days. HISTORY OF PRESENT ILLNESS: This is a 42-year-old female. The patient has obesity with BMI of 32 and was seen in the emergency room and the patient with a history of diabetes mellitus and drainage and pain at the right knee surgery. She states that she has a right knee replacement in 03/15/2017 and it has been having discharge and pain. She took tramadol at home without any improvement, and she has been having significant pain, low grade fevers. No chest pain, shortness of breath and the pain is in her knee. PAST MEDICAL HISTORY: Significant for obesity with BMI of 32, diabetes mellitus, asthma. PAST SURGICAL HISTORY: Significant for the recent surgery on the right knee 03/15/2017. SOCIAL HISTORY: The patient is an ex-smoker. ALLERGIES: SHE IS ALLERGIC TO PENICILLIN, SULFA, AND ERYTHROMYCIN. SHE STATES THAT SHE HAS HAD SOME HIVES, BUT NO QUESTIONABLE SHORTNESS OF BREATH, BUT SHE IS NOT SURE OF THAT. MEDICATIONS AT HOME: Reveals the patient has been on Seroquel, clindamycin, and Cozaar. PHYSICAL EXAMINATION: GENERAL: The patient is in bed, appears weak and uncomfortable. VITAL SIGNS: Temperature of 98, heart rate of 114, respiratory rate of 20, blood pressure of 80/40. HEENT: Unremarkable. NECK: Supple. LUNGS: Have decreased breath sounds. ABDOMEN: Soft and nontender. EXTREMITIES: Examination of the right knee has significant erythema and edema at the wound site. LABORATORY EXAMINATION: Reveals a white count of 15,000, hemoglobin of 10, platelets of 217. The patient has 93% granulocytosis. The patient's creatinine is 2.0, it was at 1.2 in 03/04/2017. Glucose is elevated. The LFTs are elevated. Urinalysis is noted. The patient had a chest x-ray, which shows negative. An x-ray of the knee, which shows position is unchanged. ASSESSMENT: This is a 42-year-old obese female with diabetes, asthma, joint disease, now presenting with status post right knee replacement on 03/15/2017 with severe presented with hypotension, tachycardia, low grade fevers, leukocytosis and a erythematous soft tissue in knee pain now with severe sepsis with acute kidney injury this severe sepsis secondary to right knee cellulitis, must rule out septic prosthetic knee, septic joint, although the recommendations of a septic joint is not to give antibiotics and this patient with leukocytosis and is certainly in angry, cellulitic component. We will start daptomycin and meropenem in a patient with multiple allergies and orthopedic reevaluation and with Dr. Menendez has been requested because of the acute kidney injury, we will discontinue the vancomycin, discontinue the clindamycin, and start the patient on daptomycin and meropenem, pending cultures and Dr. Menendez's evaluation. We will order a sed rate and C-reactive protein and we will make further recommendations upon availability of initial results. We will also ordering HIV test because of her age. Forrest Diallo MD
--- NOTE | 2017-04-03 21:26 | CON ---
DATE: 04/03/2017 INPATIENT CONSULT REASON FOR CONSULTATION: Right knee cellulitis. HISTORY OF PRESENT ILLNESS: This is a 42-year-old female, who was admitted yesterday with complaints of increasing right knee pain and inability to bear weight. Approximately 3 weeks ago, she underwent a right knee patellofemoral joint arthroplasty. She had her conor removed and she states that over the last day or two, she noticed couple of small area of clear fluid draining from the distal aspect of the incision. She was started on p.o. clindamycin and subsequently stated that she has some worsening pain. She was subsequently admitted and started on IV vancomycin and clindamycin. She states she is feeling a little bit better. PHYSICAL EXAMINATION: Today, her incision is essentially healed. She had a pinpoint area on the most distal aspect of the incision, which she states there was drainage, today nothing can be expressed from this area. She does have some mild erythema about the right knee. Her thigh and calf are soft and nontender. She has some pain with range of motion of the right knee. She is able to get to about from -5 to just about 80 with pain. Neurovascular, she is grossly intact. LABORATORY DATA: Today, her white count is down to 10 from 15. IMPRESSION: Right knee cellulitis. PLAN: At this point given that she is showing some clinical improvement, we are going to continue the antibiotics and watch this. I did explained to her that if she has any further drainage or worsening symptoms that a wash out would be necessary and she understand this. For now, we are going to keep her on the antibiotics and monitor closely. René Winter MD
[2017-04-03] MEDS: Lurasidone Hcl [Latuda] 60 MG PO SCH (22:20)
[2017-04-04] MEDS: Oxycodone/Acetaminophen 5/325 mg Tab PO PRN ×4 (01:17→21:38)
[2017-04-04] MEDS: Meropenem IV 1 gm in NS 50 ML IVPB SCH ×3 (05:29→21:35)
[2017-04-04] MEDS: Sodium Chloride 0.9% 1,000 ML IV SCH (05:30)
[2017-04-04 06:40] LABS: BASO # 0.01 K/mm3 (0.0-2.0); BASO % 0.2 % (0.0-3.0); EOS # 0.1 (0.0-0.7); EOS % 1.4 % (1.5-5.0); GRAN # 4.7 (1.4-6.5); GRAN % 75.3 % (50.0-68.0); HEMATOCRIT 26.3 % (36.0-48.0); LYMPH # 0.9 (1.2-3.4); LYMPH % 15.1 % (22.0-35.0); MEAN CORPUSCULAR HEMOGLOBIN 25.9 pg (25.0-35.0); MEAN CORPUSCULAR HGB CONC 31.2 g/dl (31.0-37.0); MEAN PLATELET VOLUME 8.8 fl (7.0-11.0); MONO # 0.5 (0.1-0.6); RED CELL DISTRIBUTION WIDTH 16.1 % (11.5-14.5); WHITE BLOOD COUNT 6.2 10^3/ul (4.5-11.0)
[2017-04-04 07:09] LABS: BLOOD UREA NITROGEN 9 mg/dL (7-21); CARBON DIOXIDE 22 mmol/L (21-33); CHLORIDE 110 mmol/L (98-107); GFR AFRICAN-AMERICAN > 60; GLUCOSE,RANDOM 100 mg/dL (70-110); POTASSIUM 3.4 mmol/L (3.6-5.0); SODIUM 141 mmol/L (132-148)
[2017-04-04 07:10] LABS: ALKALINE PHOSPHATASE 87 U/L (38-126); ALT/SGPT 42 U/L (7-56); AST/SGOT 29 U/L (14-36); BILIRUBIN,TOTAL 0.4 mg/dL (0.2-1.3); CALCIUM 8.6 mg/dL (8.4-10.5); TOTAL PROTEIN 5.6 g/dL (5.8-8.3)
[2017-04-04] MEDS: Insulin Reg-LOW-Coverage SC SCH ×4 (07:37→22:44)
[2017-04-04] MEDS ORDERED: Potassium Chloride 20 mEq ER Tab PO STA (07:55)
--- NOTE | 2017-04-04 08:02 | CP.PCM.PN ---
Subjective - Date & Time of Evaluation Date of Evaluation: 04/04/17 Time of Evaluation: 07:10 - Subjective Subjective: Patient was seen and examined at bedside. she states that her pain is improving but still significant. she is having trouble ambulating on her knee, and it is painful for her to bear weight on it, or to even mobilize her R foot. she denies fevers/chills, abdominal pain, headaches, chest pain, palpitations, n/v/d , weakness. She is currently urinating with the aid of a non-invasive urinary catheter (on light suction) due to her difficulty ambulating to use the commode. Pt states that Dr. Winter has seen her and has discussed the possibility of surgically cleaning up the knee, but it is not final yet. Objective - Vital Signs/Intake and Output Vital Signs (last 24 hours): Temp Pulse Resp BP Pulse Ox 99.1 F 98 H 20 107/64 94 L 04/04/17 07:47 04/04/17 07:47 04/04/17 07:47 04/04/17 07:47 04/04/17 07:47 Intake and Output: 04/04/17 04/04/17 06:59 18:59 Intake Total 2975 Output Total 600 Balance 2375 - Medications Medications: Current Medications Acetaminophen (Tylenol 325mg Tab) 650 mg PO Q6H PRN PRN Reason: Fever >100.4 F Last Admin: 04/03/17 06:04 Dose: 650 mg Heparin Sodium (Porcine) (Heparin) 5,000 units SC Q12 [facility] PRN Reason: Protocol Last Admin: 04/03/17 21:11 Dose: 5,000 units Sodium Chloride (Sodium Chloride 0.9%) 1,000 mls @ 999 mls/hr IV .Q1H1M [facility] Last Admin: 04/02/17 23:39 Dose: 999 mls/hr Sodium Chloride (Sodium Chloride 0.9%) 1,000 mls @ 125 mls/hr IV .Q8H [facility] Last Admin: 04/04/17 05:30 Dose: 125 mls/hr Meropenem (Merrem Iv 1 Gm Premix) 50 mls @ 100 mls/hr IVPB Q8 [facility] PRN Reason: Protocol Stop: 04/17/17 09:27 Last Admin: 04/04/17 05:29 Dose: 100 mls/hr Daptomycin 590 mg/ Sodium (Chloride) 100 mls @ 200 mls/hr IV Q24H [facility] Stop: 04/17/17 11:01 Last Admin: 04/03/17 11:24 Dose: 200 mls/hr Insulin Human Regular (Humulin R Low) 0 units SC ACHS [facility] PRN Reason: Protocol Last Admin: 04/04/17 07:37 Dose: Not Given Lamotrigine (Lamictal) 100 mg PO BID [facility] Last Admin: 04/03/17 17:03 Dose: 100 mg Lamotrigine (Lamictal) 50 mg PO BID [facility] Last Admin: 04/03/17 17:03 Dose: 50 mg Lurasidone Hcl [ (Latuda] 60 Mg) 60 mg PO HS [facility] Last Admin: 04/03/17 22:20 Dose: Not Given Oxycodone/Acetaminophen (Percocet 5/325 Mg Tab) 1 tab PO Q4H PRN PRN Reason: Pain, moderate (4-7) Stop: 04/06/17 09:48 Last Admin: 04/04/17 05:30 Dose: 1 tab Pantoprazole Sodium (Protonix Inj) 40 mg IVP DAILY [facility] Last Admin: 04/03/17 09:24 Dose: 40 mg Potassium Chloride (K-Dur 20 Meq Er Tab) 40 meq PO STAT [facility] Stop: 04/04/17 07:56 Quetiapine Fumarate (Seroquel) 100 mg PO TID [facility] Last Admin: 04/03/17 17:02 Dose: 100 mg Quetiapine Fumarate (Seroquel) 400 mg PO [facility] Last Admin: 04/03/17 21:11 Dose: 400 mg - Labs Labs: 04/04/17 06:20 04/04/17 06:20 - Constitutional Appears: Well, Non-toxic, No Acute Distress - Head Exam Head Exam: ATRAUMATIC, NORMAL INSPECTION, NORMOCEPHALIC - Eye Exam Eye Exam: EOMI, Normal appearance, PERRL - ENT Exam ENT Exam: Mucous Membranes Moist, Normal Exam - Respiratory Exam Respiratory Exam: Clear to Ausculation Bilateral, NORMAL BREATHING PATTERN. absent: Rales, Rhonchi, Wheezes - Cardiovascular Exam Cardiovascular Exam: RRR, +S1, +S2. absent: JVD - GI/Abdominal Exam GI & Abdominal Exam: Soft. absent: Distended, Tenderness - Extremities Exam Extremities Exam: Pedal Edema (1+ b/l), Tenderness (moderate to palpation RLE) Additional comments: vertical incision over R knee clean/dry/intact swelling and erythema improved from before popliteal and pedal pulses present - Back Exam Back Exam: NORMAL INSPECTION - Neurological Exam Neurological Exam: Alert, Awake, Oriented x3 - Psychiatric Exam Psychiatric exam: Normal Affect, Normal Mood - Skin Skin Exam: Pallor (improved from admission), Warm Assessment and Plan - Assessment and Plan (Free Text) Assessment: 42yo female with PMH of bipolar disorder and DM2 who presents with right knee pain s/p recent right knee arthroplasty by Dr. Winter on 03/15/17. Patient has been afebrile and WBC has trended down. Anemia is noted, likely dilutional. Plan: 1. Sepsis 2/2 Right knee cellulitis s/p arthroplasty - SIRS criteria no longer met, but pt remains tachycardic - CRP and ESR elevated - HIV is negative - procal 1.8 - Right knee xray reviewed; revealed no joint effusion, partial knee joint replacement in the femoral groove - Blood cultures negative x24hrs - Knee cultures negative for bacterial growth - cont IV antibiotics with Meropenem and Daptomycin d2 - Percocet PRN pain - Tylenol PRN for fevers - IVF hydration held due to dilution - LE duplex negative for DVT - PT eval pending - Ortho consulted, recs appreciated regarding surgical intervention - ID consulted, recs appreciated 2. Anemia is likely dilutional - Retic count 1.25 - Iron 11, TIBC 211, %sat 5 - will complete full anemia workup to r/o ferritin, vit B12, folate - will hold IVF - will continue to monitor 3. Hypokalemia - K of 3.4 - Repleted - Will continue to monitor and replete as needed 4. Acute kidney injury - resolved with IVF - Likely was secondary to prerenal SUNITA 5. Diabetes mellitus type 2 - Consistent carb diet - Fingersticks ACHS - Humulin ISS - A1C 6 6. Bipolar disorder - Continue Seroquel, Latuda, Lamictal 7. GI/DVT Prophylaxis - Protonix/heparin Patient was seen, examined and discussed with attending, Dr. Alvino Villa PGY1 Pager # [phone]
[2017-04-04 10:19] LABS: RETIC% 1.25 % (0.5-1.5)
[2017-04-04 10:23] LABS: IRON 11 ug/dL (45-180)
--- NOTE | 2017-04-04 10:25 | US ---
HISTORY: Leg pain and swelling. Evaluate for DVT PHYSICIAN(S): West Espinosa MD. TECHNIQUE: Duplex sonography and color-flow Doppler with graded compression were used to evaluate the deep venous systems of both lower extremities. FINDINGS: The visualized deep venous systems of both lower extremities are sonographically normal and compressible. Normal wave forms and augmentation are seen. There is no sonographic evidence for deep venous thrombosis in the visualized segments of both lower extremities. IMPRESSION: No sonographic evidence for deep venous thrombosis in the visualized segments of both lower extremities.
--- NOTE | 2017-04-04 17:43 | CP.PCM.PN ---
Subjective - Date & Time of Evaluation Date of Evaluation: 04/04/17 Time of Evaluation: 17:41 - Subjective Subjective: Pt complaining of r knee pain. Pt states that pain is not better. Pt also states she was taking 1200mg Motrin every 4 hours at home. T 99.1 R knee: erythema significantly better still with pain to touch anteriorly swelling noted calf soft, NT WBC 6.2 R knee cellulitis Given that patient's pain has not improved, recommend I&D of R knee to evacuate any fluid or hematoma. Pt agrees. Plan for OR tomorrow Objective - Vital Signs/Intake and Output Vital Signs (last 24 hours): Temp Pulse Resp BP Pulse Ox 99.2 F 99 H 20 116/72 96 04/04/17 16:13 04/04/17 16:00 04/04/17 16:00 04/04/17 16:00 04/04/17 16:00 Intake and Output: 04/04/17 04/04/17 06:59 18:59 Intake Total 2975 720 Output Total 600 400 Balance 2375 320 - Medications Medications: Current Medications Acetaminophen (Tylenol 325mg Tab) 650 mg PO Q6H PRN PRN Reason: Fever >100.4 F Last Admin: 04/04/17 16:13 Dose: 650 mg Heparin Sodium (Porcine) (Heparin) 5,000 units SC Q12 [facility] PRN Reason: Protocol Last Admin: 04/04/17 10:31 Dose: 5,000 units Meropenem (Merrem Iv 1 Gm Premix) 50 mls @ 100 mls/hr IVPB Q8 [facility] PRN Reason: Protocol Stop: 04/17/17 09:27 Last Admin: 04/04/17 13:46 Dose: 100 mls/hr Daptomycin 590 mg/ Sodium (Chloride) 100 mls @ 200 mls/hr IV Q24H [facility] Stop: 04/17/17 11:01 Last Admin: 04/04/17 10:31 Dose: 200 mls/hr Insulin Human Regular (Humulin R Low) 0 units SC ACHS [facility] PRN Reason: Protocol Last Admin: 04/04/17 17:40 Dose: Not Given Lamotrigine (Lamictal) 100 mg PO BID [facility] Last Admin: 04/04/17 10:33 Dose: 100 mg Lamotrigine (Lamictal) 50 mg PO BID [facility] Last Admin: 04/04/17 10:33 Dose: 50 mg Lurasidone Hcl [ (Latuda] 60 Mg) 60 mg PO HS [facility] Last Admin: 04/03/17 22:20 Dose: Not Given Oxycodone/Acetaminophen (Percocet 5/325 Mg Tab) 1 tab PO Q6H PRN PRN Reason: Pain, moderate (4-7) Stop: 04/07/17 16:34 Pantoprazole Sodium (Protonix Ec Tab) 40 mg PO ACB [facility] Quetiapine Fumarate (Seroquel) 100 mg PO TID [facility] Last Admin: 04/04/17 13:46 Dose: 100 mg Quetiapine Fumarate (Seroquel) 400 mg PO HS [facility] Last Admin: 04/03/17 21:11 Dose: 400 mg - Labs Labs: 04/04/17 06:20 04/04/17 06:20
--- NOTE | 2017-04-04 19:44 | PN ---
DATE: 04/04/2017 SUBJECTIVE: The patient is in bed, in no acute distress, nontoxic. PHYSICAL EXAMINATION: VITAL SIGNS: Temperature is 98, blood pressure is 107/60, respiratory rate of 20, heart rate of 98. HEENT: Unremarkable. NECK: Supple. LUNGS: Have decreased breath sounds. HEART: Normal S1 and S2. ABDOMEN: Soft and nontender. LABORATORY DATA: Laboratory examination reveals white count of 6.2, hemoglobin of 8, and platelets of 177. BUN of 9 and creatinine of 0.8. Urinalysis is noted. HIV is negative. Microbiology reveals the blood culture have no growth. Knee culture is pending. No organism is seen under Gram stain. Dr. Winter's consultation is reviewed. ASSESSMENT AND PLAN: A 42-year-old obese female with diabetes, asthma, and joint disease presenting with status post right knee replacement on 03/15/2017, now presenting with hypotension, tachycardia, low-grade fever, leukocytosis, erythematous soft tissue and pain of the right knee with severe sepsis with acute kidney injury secondary to right cellulitis, most rule out an underlining septic prosthetic joint infection and currently on daptomycin and meropenem, tolerating the medications well, day #2 waiting for wound cultures and clinical response and possible surgical orthopedic intervention. The soft tissue is much improved. Forrest Diallo MD
[2017-04-04] MEDS: Lurasidone Hcl [Latuda] 60 MG PO SCH (22:45)
[2017-04-05] MEDS ORDERED: Oxycodone/Acetaminophen 5/325 mg Tab PO STA (02:09)
[2017-04-05] MEDS: Meropenem IV 1 gm in NS 50 ML IVPB SCH ×3 (05:38→21:45)
[2017-04-05 06:22] LABS: BASO # 0.02 K/mm3 (0.0-2.0); BASO % 0.3 % (0.0-3.0); EOS # 0.2 (0.0-0.7); EOS % 2.6 % (1.5-5.0); GRAN # 4.78 (1.4-6.5); GRAN % 69.7 % (50.0-68.0); HEMATOCRIT 27.6 % (36.0-48.0); LYMPH # 1.4 (1.2-3.4); MEAN CELL VOLUME 82.4 fl (80.0-105.0); MEAN CORPUSCULAR HGB CONC 31.5 g/dl (31.0-37.0); MEAN PLATELET VOLUME 8.6 fl (7.0-11.0); MONO # 0.5 (0.1-0.6); MONO % 7.4 % (1.0-6.0); RED CELL DISTRIBUTION WIDTH 15.9 % (11.5-14.5); WHITE BLOOD COUNT 6.9 10^3/ul (4.5-11.0)
[2017-04-05 06:44] LABS: INR 1.28 (0.93-1.08); PARTIAL THROMBOPLASTIN TIME 25.9 Seconds (25.1-36.5)
[2017-04-05 06:55] LABS: ALKALINE PHOSPHATASE 95 U/L (38-126); ALT/SGPT 37 U/L (7-56); AST/SGOT 42 U/L (14-36); BILIRUBIN,TOTAL 0.3 mg/dL (0.2-1.3); BLOOD UREA NITROGEN 10 mg/dL (7-21); CALCIUM 8.9 mg/dL (8.4-10.5); CARBON DIOXIDE 23 mmol/L (21-33); CHLORIDE 110 mmol/L (98-107); GFR AFRICAN-AMERICAN > 60; GLUCOSE,RANDOM 101 mg/dL (70-110); POTASSIUM 3.5 mmol/L (3.6-5.0); SODIUM 141 mmol/L (132-148)
[2017-04-05] MEDS: Insulin Reg-LOW-Coverage SC SCH ×4 (10:07→22:22)
[2017-04-05] MEDS: Pantoprazole 40 mg EC Tab PO SCH (10:08)
[2017-04-05] MEDS ORDERED: Lurasidone Hcl [Latuda] 60 MG PO SCH (10:59)
--- NOTE | 2017-04-05 11:08 | CP.PCM.PN ---
Subjective - Date & Time of Evaluation Date of Evaluation: 04/05/17 Time of Evaluation: 09:10 - Subjective Subjective: Patient was seen and examined at bedside. She is still complaining of R knee pain, that is only slightly better than at admission. She states that overnight , the wound starting oozing again, a light yellow-red fluid, which is similar to what it produced before. The patient agrees that the redness on the knee has improved. She denies fevers, chills, n/v/d, abdominal pain, constipation, headaches or changes in vision. She states that prior to this episode, the patient was able to walk and climb stairs with no shortness of breath or issues at all, and could tolerate physical activity. She denies a hx of anemia, or any blood in urine or stools. The patient requested to see psychiatrist yesterday given her psych hx and stress from the situation. Objective - Vital Signs/Intake and Output Vital Signs (last 24 hours): Temp Pulse Resp BP Pulse Ox 98.4 F 91 H 20 108/67 96 04/05/17 08:41 04/05/17 08:41 04/05/17 08:41 04/05/17 08:41 04/05/17 08:41 Intake and Output: 04/05/17 04/05/17 06:59 18:59 Intake Total 620 Output Total 1300 Balance -680 - Medications Medications: Current Medications Acetaminophen (Tylenol 325mg Tab) 650 mg PO Q6H PRN PRN Reason: Fever >100.4 F Last Admin: 04/04/17 16:13 Dose: 650 mg Clonazepam (Klonopin) 0.5 mg PO QID PRN; Protocol PRN Reason: Anxiety Heparin Sodium (Porcine) (Heparin) 5,000 units SC Q12 [facility] PRN Reason: Protocol Last Admin: 04/05/17 10:06 Dose: 5,000 units Meropenem (Merrem Iv 1 Gm Premix) 50 mls @ 100 mls/hr IVPB Q8 [facility] PRN Reason: Protocol Stop: 04/17/17 09:27 Last Admin: 04/05/17 05:38 Dose: 100 mls/hr Daptomycin 590 mg/ Sodium (Chloride) 100 mls @ 200 mls/hr IV Q24H [facility] Stop: 04/17/17 11:01 Last Admin: 04/05/17 10:32 Dose: 200 mls/hr Insulin Human Regular (Humulin R Low) 0 units SC ACHS [facility] PRN Reason: Protocol Last Admin: 04/05/17 10:07 Dose: Not Given Lamotrigine (Lamictal) 50 mg PO BID [facility] Last Admin: 04/05/17 10:08 Dose: 50 mg Lamotrigine (Lamictal) 200 mg PO BID [facility] Lurasidone Hcl [ (Latuda] 60 Mg) 60 mg PO DAILY [facility] Oxycodone/Acetaminophen (Percocet 5/325 Mg Tab) 1 tab PO Q6H PRN PRN Reason: Pain, moderate (4-7) Stop: 04/07/17 16:34 Last Admin: 04/04/17 21:38 Dose: 1 tab Pantoprazole Sodium (Protonix Ec Tab) 40 mg PO ACB [facility] Last Admin: 04/05/17 10:08 Dose: Not Given Quetiapine Fumarate (Seroquel) 100 mg PO TID [facility] Last Admin: 04/05/17 10:09 Dose: Not Given Quetiapine Fumarate (Seroquel) 400 mg PO HS [facility] Last Admin: 04/04/17 21:36 Dose: 400 mg - Labs Labs: 04/05/17 05:30 04/05/17 05:30 PT 14.2 SECONDS (9.4-12.5) H 04/05/17 05:30 INR 1.28 (0.93-1.08) H 04/05/17 05:30 APTT 25.9 Seconds (25.1-36.5) 04/05/17 05:30 - Constitutional Appears: Well, Non-toxic, No Acute Distress - Head Exam Head Exam: ATRAUMATIC, NORMOCEPHALIC - Eye Exam Eye Exam: EOMI, Normal appearance, PERRL Additional comments: no conjuctival pallor - ENT Exam ENT Exam: Mucous Membranes Dry, Normal Exam - Neck Exam Neck Exam: Normal Inspection - Respiratory Exam Respiratory Exam: Clear to Ausculation Bilateral, NORMAL BREATHING PATTERN. absent: Rales, Rhonchi, Wheezes - Cardiovascular Exam Cardiovascular Exam: RRR, +S1, +S2. absent: JVD - GI/Abdominal Exam GI & Abdominal Exam: Soft, Normal Bowel Sounds. absent: Distended, Tenderness - Extremities Exam Extremities Exam: Pedal Edema (1+ RLE), Tenderness (around incision site). absent: Full ROM (RLE ROM limited due to pain) Additional comments: vertical incision over R knee with dressing applied to distal portion of incision (clean/dry/intact) swelling and erythema improved from before popliteal and pedal pulses present - Back Exam Back Exam: NORMAL INSPECTION - Neurological Exam Neurological Exam: Alert, Awake, Oriented x3 - Psychiatric Exam Psychiatric exam: Normal Affect, Normal Mood - Skin Skin Exam: Normal Color, Warm Assessment and Plan - Assessment and Plan (Free Text) Assessment: 42yo female with PMH of bipolar disorder and DM2 who presented with sepsis and right knee pain s/p recent right patellofemoral joint arthroplasty by Dr. Winter on 03/15/17, likely 2/2 cellulitis but must r/o septic arthritis given recent ortho surgery and hardware. Patient has been afebrile and WBC has trended down, however pain is still severe. Anemia is noted, likely dilutional and is improving. Plan: 1. Sepsis 2/2 Right knee cellulitis vs septic arthritis s/p arthroplasty - Plan to go to OR today for I&D of R knee with Dr. Winter; medically, the patient is a low risk for surgery and is cleared - Knee cultures positive for Gram negative rods - cont IV antibiotics with Meropenem and Daptomycin d3 - IVF hydration held due to dilution - Percocet PRN pain - Tylenol PRN for fevers - SIRS criteria no longer met - CRP and ESR elevated - Blood cultures negative x48hrs - Urine cultures negative - HIV is negative - procal 1.8 - Right knee xray reviewed; revealed no joint effusion, partial knee joint replacement in the femoral groove - LE duplex negative for DVT - PT eval recommending home with outpatient PT followup/TCU if needed - Ortho consulted, recs appreciated - ID consulted, recs appreciated 2. Anemia is likely dilutional - Retic count 1.25 - Iron 11, TIBC 211, %sat 5, ferritin 105 - f/u folate - vit B12 197 (low) - will hold IVF - will continue to monitor 3. Hypokalemia - K of 3.5 - Repleted - Will continue to monitor and replete as needed 4. Acute kidney injury - resolved with IVF - Likely was secondary to prerenal SUNITA 5. Diabetes mellitus type 2 - Consistent carb diet - Fingersticks ACHS - Humulin ISS - A1C 6 6. Bipolar disorder - Continue Seroquel, Latuda, Lamictal - medications in process of being cleared by pharmacy as pt has all meds in one box - Psych consulted, recs appreciated 7. GI/DVT Prophylaxis - Protonix/heparin Patient was seen, examined and discussed with attending, Dr. Cain Villa PGY1 Pager # [phone]
[2017-04-05] MEDS ORDERED: Potassium Chloride 20 mEq ER Tab PO STA (11:49)
--- NOTE | 2017-04-05 14:16 | CON ---
DATE: HISTORY OF PRESENT ILLNESS: The patient is a 42-year-old female with reported history of bipolar disorder, multiple medical issues including diabetes, status post surgery on the right knee. The patient was admitted from the medical side for evaluation of worsening of the knee pain. Psychiatry consult was called for evaluation of psychotropic medications. The patient was seen and examined. The patient presented to be tearful. The patient said that she cannot tolerate the pain. She is aware of the treatment plan and she wants to get surgery in order to have relief from knee pain. The patient reported a long history of bipolar disorder. She had 3 suicide attempts in the past, most recent was at age of 28. The patient overdosed on medications. The patient was found accidentally by her sister, who came back from work. The patient reported at the moment she feels depressed. At times, she has thoughts of dying, but denied any thoughts of killing herself or denied any intents or plans to kill herself. The patient denied hearing voices. Denies seeing things. Reported transient feeling of hopelessness. MEDICATIONS: Reviewed. Tylenol, daptomycin, heparin, and Humulin. The patient is on Lamictal as per Medical team 150 twice a day, meropenem, oxycodone, and Protonix. The patient is on Seroquel 400 mg at the nighttime and 100 mg 3 times a day. The patient reported that fills her medications in [facility], which was contacted, phone number is [phone]. As per pharmacy report, the patient was clonazepam 0.5 mg 4 times a day prescribed by Dr. Verde. Also the patient was on Lamictal 200 mg twice a day , Latuda 60 mg daily, Seroquel 100 mg 3 times a day and 400 mg at the nighttime. The patient filled medication in March, -day supply was given. The patient said that she is seeing her doctor every 3 months. PHYSICAL EXAMINATION: VITAL SIGNS: Stable. Temperature 98.4, pulse 91, blood pressure 108/67, respirations 20, and oxygen saturation 96%. MENTAL STATUS EXAMINATION: The patient presented to be tearful, depressed. The patient has intermittent eye contact. Mood is described as depressed. Affect was tearful and mood congruent. Thought process was coherent and goal directed. Thought content, the patient denied visual, auditory, or tactile hallucinations. Denied paranoid ideations. The patient reported feeling of hopelessness. Reported passive wish to be , but denies any intent or plan to kill herself. Insight and judgment are fair. Impulses are well controlled. IMPRESSION: As per history, the patient has bipolar disorder, rule out mood disorder due to general medical condition. PLAN: Continue current management. This blurb writer will resume clonazepam 4 times a day as needed. Lamictal should be 200 mg twice a day. Latreji was called in to [facility] 60 mg daily. Seroquel should be continued 100 mg 3 times a day and 400 mg at the nighttime. We will consider to give extended release 800 mg at the nighttime or extended release 300 mg at the morning time and 400 mg at the nighttime. We will talk more to the patient. The patient has surgery today. The patient was advised to medications as prescribed. Should you have any questions, give me a call back. We will follow up and advised accordingly. Thank you very much for letting me participate in the care of your patient. Cass Fernandez MD
[2017-04-05] MEDS ORDERED: Propofol 10 mg/ml Inj (20 ML) ONE (15:11)
[2017-04-05] MEDS ORDERED: Midazolam 2 MG/2 ML VIAL ONE (15:12)
[2017-04-05] MEDS ORDERED: Rocuronium 10 mg/ml (5 ml) ONE (15:14)
[2017-04-05] MEDS ORDERED: Neostigmine Methylsulfate 3mg/3ml Syringe IV ONE (15:29)
[2017-04-05] MEDS ORDERED: Glycopyrrolate 0.2 mg/ml (2ml vial) ONE (15:29)
[2017-04-05] MEDS ORDERED: HYDROmorphone 0.5 mg/0.5 ml ISec IVP PRN ×2 (15:33→18:07)
--- NOTE | 2017-04-05 15:38 | PCM.ANESB3 ---
Femoral Nerve Block - Femoral Nerve Block Date of Procedure: 04/05/17 Anesthesiologist: hossein Pre-Procedure Diagnosis: infected surgical knee Post-Procedure Diagnosis: as above Procedure Performed: Femoral Nerve Block Right - Procedure Femoral Nerve Block: The procedure was explained to the patient that it is for the post-operative pain management. Consent was obtained after a thorough discussion with the patient regarding the benefits and possible complications of local anesthetic block of the femoral nerve at the inguinal crease area prior to surgery. The patient was brought to the operating room and standard monitors were applied. Time-out was held with the circulating nurse to confirm the correct surgery and the appropriate block. After complettion of the procedure, patient was placed in supine position with fully extended lower extremities and the right___ groin exposed. The femoral artery was then carefully palpated. The ultrasound transducer was then applied to this area in the transverse plane and the femoral nerve was visualized lateral to the femoral artery and underneath the fascia iliaca. After thorough identification, the inguinal crease area was prepped with Betadine solution three times and 1 % Lidocaine was injected subcutaneously for topical anesthesia. At this point, a #22 gauge Stimuplex 2-inch needle was inserted immediately lateral to the femoral artery pulse at the inguinal crease and advanced perpendicularly. The needle was inserted to the ultrasound transducer in-plane towards the femoral nerve in a [id number] direction. Needle advancement was performed carefully under direct ultrasound visualization. Nerve stimulator was used and twitch of the quadriceps muscle was obtained at current of _.3____ MA. After negative aspiration, ___20__cc of ___.5__% ____bupivicaine ____was injected. Under ultrasound guidance the local anesthetics were observed spreading below fascia iliaca and around the femoral nerve. The needle was removed intact and sterile dressing was applied. The patient had stable vital signs, was extubated and was transported to pacu in no apparent distress.
[2017-04-05] MEDS ORDERED: Bupivacaine 0.5% Inj(30mL) ONE (15:45)
[2017-04-05] MEDS ORDERED: Lactated Ringer's 1,000 ML IV SCH ×2 (15:45→18:15)
--- NOTE | 2017-04-05 16:05 | PCM.SURG1 ---
Surgeon's Initial Post Op Note - Surgeon's Notes Surgeon: Denia Winter MD Basket Maker: none Type of Anesthesia: General Endo Anesthesia Administered By: Dr. Silva Pre-Operative Diagnosis: Right knee surgical wound infection Operative Findings: noted fluid drainage Post-Operative Diagnosis: same Operation Performed: Right knee arthrotomy, I&D, culture Specimen/Specimens Removed: superficial and deep cultures sent Estimated Blood Loss: EBL {In ML}: 25 Blood Products Given: N/A Drains Used: No Drains Post-Op Condition: Fair Date of Surgery/Procedure: 04/05/17 Time of Surgery/Procedure: 17:00
[2017-04-05] MEDS ORDERED: Vancomycin 1 g Inj ONE (16:20)
--- NOTE | 2017-04-05 18:10 | PN ---
DATE: 04/05/2017 SUBJECTIVE: The patient is in bed in no acute distress. PHYSICAL EXAMINATION: Temperature 98, blood pressure is 108/60, respiratory rate 20. HEENT: Examination of HEENT is unremarkable. NECK: Supple. LUNGS: Have decreased breath sounds. HEART: Normal S1, S2. ABDOMEN: Soft. EXTREMITIES: Knees improved although she is still having pain. LABORATORY EXAMINATION: Reveals a white count of 6.9. Sed rate is 89. BUN of 10, creatinine of 0.8. C-reactive protein is greater than 15. HIV is negative. Microbiology reveals a gram-negative lui from the knee culture. The blood cultures have no growth and urine culture has no growth. The patient is currently on daptomycin and meropenem. ASSESSMENT/PLAN: A 42-year-old female with obesity with a body mass index of 31 with multiple allergies, erythromycin, penicillin, and sulfa, admitted with a history of diabetes and recent knee replacement, admitted now with severe sepsis with a gram-negative lui cellulitis, must rule out underlying septic prosthetic joint. The patient is scheduled for operative room today. We will make further recommendation based on operative room cultures. Forrest Diallo MD
[2017-04-05] MEDS ORDERED: HYDROmorphone 0.5 mg/0.5 ml ISec ONE ×2 (18:12→18:36)
[2017-04-05] MEDS: Oxycodone/Acetaminophen 5/325 mg Tab PO PRN (19:52)
[2017-04-05] MEDS: HYDROmorphone 2 mg/ml ISec IVP PRN (20:50)
[2017-04-06] MEDS: HYDROmorphone 2 mg/ml ISec IVP PRN ×7 (00:44→23:07)
--- NOTE | 2017-04-06 02:22 | OP ---
PROCEDURE DATE: 04/05/2017 PREOPERATIVE DIAGNOSIS: Right knee infection status post right patellofemoral arthroplasty. SURGEON: René Winter MD TYPE OF ANESTHESIA: General. COMPLICATIONS: None. ESTIMATED BLOOD LOSS: 25 mL TOURNIQUET TIME: 75 minutes at 300 mmHg. INDICATION FOR PROCEDURE: This is a 42-year-old female who 3 weeks ago underwent a right patellofemoral arthroplasty. The patient tolerated the procedure well, approximately postoperative day number 18, the patient started to have increasing pain and small amount of serous drainage from the right knee incision. The patient was subsequently admitted to the hospital and started on IV antibiotics. Due to persistent pain and some small amount of drainage from the distal aspect to the incision, recommendations for open, irrigation and debridement of the right knee joint with retention of the implants. The risks, benefits, and alternatives of procedure were discussed with the patient including persistent reinfection, and informed consent was obtained. OPERATIVE PROCEDURE: After the surgical site was signed and verified in the preoperative holding area, the patient was taken to the operating room and placed supine on the operating room table. After administration of general anesthesia, tourniquet was placed about the right thigh. Care was taken to make sure all bony prominences and nerves were well padded and protected. Right lower extremity was prepped and draped in usual sterile fashion. The tourniquet was inflated at 300 mmHg. The distal half of the prior incision was re-incised and immediately some fluid was evacuated. Culture swabs was inserted into the subcutaneous tissue and sent off for specimen, both aerobic and anaerobic. At this point, the wound was irrigated, and previous arthrotomy was also partially reopened. No gross purulence was appreciated and at this point, using sharp debridement, curettes and rongeurs any loose and nonviable tissue was debrided, any prior loose sutures were also removed. At this point, once the debridement was done, knee joint was pulsed lavaged with 9 liters of antibiotic saline solution. Once the irrigation was complete and the new sterile back table was used and new down sheets and new gloves were used. At this point, the wound was inspected for any purulent material or nonviable tissue. Deep cultures were also taken once the arthrotomy was opened. Satisfied, the arthrotomy was re-closed using number 1 Vicryl suture, the subcutaneous tissue was closed using 0 Vicryl and 2-0 Vicryl suture and the skin was closed using 3-0 nylon. The sterile dressing was applied and the knee immobilizer was placed. Tourniquet was deflated after 75 minutes. The patient was awakened from the procedure and taken to the recovery room in stable condition. René Winter MD
[2017-04-06] MEDS: Meropenem IV 1 gm in NS 50 ML IVPB SCH ×3 (05:38→22:07)
[2017-04-06 07:00] LABS: BASO # 0.02 K/mm3 (0.0-2.0); BASO % 0.4 % (0.0-3.0); EOS # 0.2 (0.0-0.7); GRAN # 3.39 (1.4-6.5); GRAN % 67.1 % (50.0-68.0); HEMATOCRIT 28.3 % (36.0-48.0); LYMPH # 0.9 (1.2-3.4); LYMPH % 18.6 % (22.0-35.0); MEAN CELL VOLUME 82.5 fl (80.0-105.0); MEAN CORPUSCULAR HEMOGLOBIN 25.7 pg (25.0-35.0); MEAN CORPUSCULAR HGB CONC 31.1 g/dl (31.0-37.0); MEAN PLATELET VOLUME 8.5 fl (7.0-11.0); MONO # 0.6 (0.1-0.6); MONO % 10.9 % (1.0-6.0); WHITE BLOOD COUNT 5.1 10^3/ul (4.5-11.0)
[2017-04-06 07:44] LABS: ALKALINE PHOSPHATASE 115 U/L (38-126); ALT/SGPT 45 U/L (7-56); AST/SGOT 40 U/L (14-36); BILIRUBIN,TOTAL 0.4 mg/dL (0.2-1.3); BLOOD UREA NITROGEN 10 mg/dL (7-21); CARBON DIOXIDE 23 mmol/L (21-33); CHLORIDE 106 mmol/L (98-107); GFR AFRICAN-AMERICAN > 60; GLUCOSE,RANDOM 97 mg/dL (70-110); POTASSIUM 3.8 mmol/L (3.6-5.0); SODIUM 139 mmol/L (132-148); TOTAL PROTEIN 6.1 g/dL (5.8-8.3)
[2017-04-06] MEDS: Insulin Reg-LOW-Coverage SC SCH ×4 (07:51→21:37)
--- NOTE | 2017-04-06 08:47 | CP.PCM.PCO ---
Physician Communication Note - Physician Communication Note Physician Communication Note: pt will be seen by
--- NOTE | 2017-04-06 08:52 | CP.PCM.PN ---
Subjective - Date & Time of Evaluation Date of Evaluation: 04/06/17 Time of Evaluation: 07:00 - Subjective Subjective: Patient was seen and examined at bedside. She is drowsy due to the pain medication, however, she verbalizes that she has relief after the surgery and that she tolerated the surgery well. she denies any fevers/chills, n/v/d, numbness/tingling, chest pain or sob. she is still able to move her RLE and is using her incentive spirometer as encouraged. Objective - Vital Signs/Intake and Output Vital Signs (last 24 hours): Temp Pulse Resp BP Pulse Ox 99.2 F 100 H 17 97/57 L 95 04/06/17 01:00 04/06/17 01:00 04/06/17 01:00 04/06/17 01:00 04/06/17 01:00 Intake and Output: 04/06/17 04/06/17 06:59 18:59 Intake Total 380 0 Output Total 159 500 Balance 221 -500 - Medications Medications: Current Medications Acetaminophen (Tylenol 325mg Tab) 650 mg PO Q6H PRN PRN Reason: Fever >100.4 F Last Admin: 04/04/17 16:13 Dose: 650 mg Clonazepam (Klonopin) 0.5 mg PO QID PRN; Protocol PRN Reason: Anxiety Heparin Sodium (Porcine) (Heparin) 5,000 units SC Q12 [facility] PRN Reason: Protocol Last Admin: 04/05/17 21:45 Dose: 5,000 units Hydromorphone HCl (Dilaudid) 1 mg IVP Q3H PRN PRN Reason: Pain, severe (8-10) Last Admin: 04/06/17 05:49 Dose: 1 mg Meropenem (Merrem Iv 1 Gm Premix) 50 mls @ 100 mls/hr IVPB Q8 [facility] PRN Reason: Protocol Stop: 04/17/17 09:27 Last Admin: 04/06/17 05:38 Dose: 100 mls/hr Daptomycin 590 mg/ Sodium (Chloride) 100 mls @ 200 mls/hr IV Q24H [facility] Stop: 04/17/17 11:01 Last Admin: 04/05/17 10:32 Dose: 200 mls/hr Insulin Human Regular (Humulin R Low) 0 units SC ACHS [facility] PRN Reason: Protocol Last Admin: 04/06/17 07:51 Dose: Not Given Lamotrigine (Lamictal) 100 mg PO BID [facility] Last Admin: 04/05/17 19:06 Dose: Not Given Lamotrigine (Lamictal) 50 mg PO BID [facility] Last Admin: 04/05/17 19:06 Dose: Not Given Lamotrigine (Lamictal) 200 mg PO BID [facility] Last Admin: 04/05/17 19:06 Dose: Not Given Lurasidone Hcl [ (Latuda] 60 Mg) 60 mg PO DAILY [facility] Ondansetron HCl (Zofran Inj) 4 mg IVP ONCE PRN PRN Reason: Nausea/Vomiting Oxycodone/Acetaminophen (Percocet 5/325 Mg Tab) 1 tab PO Q6H PRN PRN Reason: Pain, moderate (4-7) Stop: 04/07/17 16:34 Last Admin: 04/05/17 19:52 Dose: 1 tab Pantoprazole Sodium (Protonix Ec Tab) 40 mg PO ACB [facility] Last Admin: 04/05/17 10:08 Dose: Not Given Quetiapine Fumarate (Seroquel) 100 mg PO TID [facility] Last Admin: 04/05/17 18:54 Dose: Not Given Quetiapine Fumarate (Seroquel) 400 mg PO HS [facility] Last Admin: 04/05/17 21:45 Dose: 400 mg - Labs Labs: 04/06/17 06:30 04/06/17 06:30 PT 14.2 SECONDS (9.4-12.5) H 04/05/17 05:30 INR 1.28 (0.93-1.08) H 04/05/17 05:30 APTT 25.9 Seconds (25.1-36.5) 04/05/17 05:30 - Constitutional Appears: Well, Non-toxic, No Acute Distress - Head Exam Head Exam: ATRAUMATIC, NORMAL INSPECTION, NORMOCEPHALIC - Eye Exam Eye Exam: Normal appearance - ENT Exam ENT Exam: Mucous Membranes Moist, Normal Exam - Neck Exam Neck Exam: Normal Inspection - Respiratory Exam Respiratory Exam: Clear to Ausculation Bilateral, NORMAL BREATHING PATTERN. absent: Rales, Wheezes - Cardiovascular Exam Cardiovascular Exam: RRR, +S1, +S2 - GI/Abdominal Exam GI & Abdominal Exam: Soft, Normal Bowel Sounds. absent: Distended, Tenderness - Extremities Exam Extremities Exam: Full ROM (R knee mobility is limited), Pedal Edema (improving RLE). absent: Calf Tenderness Additional comments: dressing applied over R knee - Back Exam Back Exam: NORMAL INSPECTION - Neurological Exam Neurological Exam: Alert, Awake. absent: Motor Sensory Deficit - Psychiatric Exam Psychiatric exam: Normal Affect, Normal Mood - Skin Skin Exam: Pallor (improved from prior days), Warm Assessment and Plan - Assessment and Plan (Free Text) Assessment: 42yo female with PMH of bipolar disorder and DM2 who presented with sepsis and right knee pain s/p recent right patellofemoral joint arthroplasty by Dr. Winter on 03/15/17, and s/p right knee arthrotomy w/ I&D POD1. Patient remains afebrile, WBC is unremarkable and pain is improving. Anemia is noted but stable, likely dilutional. Cultures from right knee growing gram neg lui ( prelim), and superficial and deep tissue cultures were sent. Plan: 1. Sepsis 2/2 Right knee cellulitis vs septic arthritis s/p arthroplasty and followup arthrotomy - POD1 for R knee arthrotomy and I&D - tissue specimens from OR were cultured, will f/u - R knee superficial wound (NOT OR) cultures positive for Gram negative rods - cont IV antibiotics with Meropenem and Daptomycin d4 - IVF hydration held due to dilution - Dilaudid and Percocet PRN pain - Tylenol PRN for fevers and Zofran PRN n/v - Sepsis resolved; SIRS criteria no longer met - Blood and urine cultures negative - PT eval recommending home with outpatient PT followup/TCU if needed - TCU eval placed - Ortho consulted, recs appreciated - ID consulted, recs appreciated 2. Anemia is likely dilutional - will hold IVF - will continue to monitor 3. Hypokalemia, improved - Will continue to monitor and replete as needed 4. Anxiety - Klonopin PRN - Psych consulted, recs appreciated 5. Bipolar disorder - Continue Seroquel, Latuda, Lamictal - Psych consulted, recs appreciated 6. Diabetes mellitus type 2 - Consistent carb diet - Fingersticks ACHS - Humulin ISS - A1C 6 7. GI/DVT Prophylaxis - Protonix/heparin Patient was seen, examined and discussed with attending, Dr. Alvino Villa PGY1 Pager # [phone]
[2017-04-06] MEDS: Pantoprazole 40 mg EC Tab PO SCH (09:09)
--- NOTE | 2017-04-06 11:19 | CP.PCM.PN ---
Subjective - Date & Time of Evaluation Date of Evaluation: 04/06/17 Time of Evaluation: 11:17 - Subjective Subjective: Pt awake,alert. Pt states leg still feels numb. Pt had femoral nerve block yesterday evening. Afebrile RLE:motor intact distally dressing and immobilizer in place Hg 8.8 wound culture (not OR) gram neg rods POD#1 Antibiotics as per ID PT Objective - Vital Signs/Intake and Output Vital Signs (last 24 hours): Temp Pulse Resp BP Pulse Ox 99.6 F 99 H 18 113/74 96 04/06/17 06:00 04/06/17 06:00 04/06/17 06:00 04/06/17 06:00 04/06/17 06:00 Intake and Output: 04/06/17 04/06/17 06:59 18:59 Intake Total 380 0 Output Total 159 500 Balance 221 -500 - Medications Medications: Current Medications Acetaminophen (Tylenol 325mg Tab) 650 mg PO Q6H PRN PRN Reason: Fever >100.4 F Last Admin: 04/04/17 16:13 Dose: 650 mg Clonazepam (Klonopin) 0.5 mg PO QID PRN; Protocol PRN Reason: Anxiety Heparin Sodium (Porcine) (Heparin) 5,000 units SC Q12 [facility] PRN Reason: Protocol Last Admin: 04/06/17 09:04 Dose: 5,000 units Hydromorphone HCl (Dilaudid) 1 mg IVP Q3H PRN PRN Reason: Pain, severe (8-10) Last Admin: 04/06/17 10:27 Dose: 1 mg Meropenem (Merrem Iv 1 Gm Premix) 50 mls @ 100 mls/hr IVPB Q8 [facility] PRN Reason: Protocol Stop: 04/17/17 09:27 Last Admin: 04/06/17 05:38 Dose: 100 mls/hr Daptomycin 590 mg/ Sodium (Chloride) 100 mls @ 200 mls/hr IV Q24H [facility] Stop: 04/17/17 11:01 Last Admin: 04/05/17 10:32 Dose: 200 mls/hr Insulin Human Regular (Humulin R Low) 0 units SC ACHS [facility] PRN Reason: Protocol Last Admin: 04/06/17 07:51 Dose: Not Given Lamotrigine (Lamictal) 100 mg PO BID [facility] Last Admin: 04/06/17 09:07 Dose: 100 mg Lamotrigine (Lamictal) 50 mg PO BID [facility] Last Admin: 04/06/17 09:05 Dose: 50 mg Lamotrigine (Lamictal) 200 mg PO BID [facility] Last Admin: 04/06/17 09:06 Dose: 200 mg Lurasidone Hcl [ (Latuda] 60 Mg) 60 mg PO DAILY [facility] Ondansetron HCl (Zofran Inj) 4 mg IVP ONCE PRN PRN Reason: Nausea/Vomiting Oxycodone/Acetaminophen (Percocet 5/325 Mg Tab) 1 tab PO Q6H PRN PRN Reason: Pain, moderate (4-7) Stop: 04/07/17 16:34 Last Admin: 04/05/17 19:52 Dose: 1 tab Pantoprazole Sodium (Protonix Ec Tab) 40 mg PO ACB [facility] Last Admin: 04/06/17 09:09 Dose: 40 mg Quetiapine Fumarate (Seroquel) 100 mg PO TID [facility] Last Admin: 04/06/17 09:08 Dose: Not Given Quetiapine Fumarate (Seroquel) 400 mg PO HS [facility] Last Admin: 04/05/17 21:45 Dose: 400 mg - Labs Labs: 04/06/17 06:30 04/06/17 06:30 PT 14.2 SECONDS (9.4-12.5) H 04/05/17 05:30 INR 1.28 (0.93-1.08) H 04/05/17 05:30 APTT 25.9 Seconds (25.1-36.5) 04/05/17 05:30
[2017-04-06 17:15] VITALS: RESP 20
--- NOTE | 2017-04-07 00:40 | PN ---
DATE: 04/06/2017 SUBJECTIVE: The patient is in bed, in no acute distress. PHYSICAL EXAMINATION: VITAL SIGNS: Temperature is 99, blood pressure is 110/70, respiratory rate of 20, heart rate of 97. HEENT: Unremarkable. NECK: Supple. LUNGS: Have decreased breath sounds. HEART: Normal S1 and S2. ABDOMEN: Soft and nontender. LABORATORY EXAMINATION: White count of 5.8, hemoglobin of 8, and platelets of 201. Coagulation is noted. Chemistries reveals a BUN of 10, creatinine of 0.7, procalcitonin is 1.80. Urinalysis is noted, and serology for HIV is negative. Microbiology reveals Enterobacter aerogenes in the knee culture, relatively sensitive to drugs. The OR cultures are pending. The patient is currently on daptomycin and meropenem. 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 Winter, awaiting for the OR cultures in order to make a definite diagnosis, antibiotic choice, and duration will be prolonged. Forrest Diallo MD
[2017-04-07] MEDS: HYDROmorphone 2 mg/ml ISec IVP PRN (03:48)
[2017-04-07] MEDS: Meropenem IV 1 gm in NS 50 ML IVPB SCH ×3 (05:19→21:38)
--- NOTE | 2017-04-07 07:18 | CON ---
DATE: HISTORY OF PRESENT ILLNESS: The patient is a 42-year-old white female, who has a past psychiatric history of bipolar disorder, who was now admitted with right knee pain also has a history of diabetes mellitus type 2, hypertension and migraine. She had undergone right knee surgery in 03/15 with increasing pain since then. She has been under the care of surgeon Dr. Winter. She has had a past history of cholecystectomy, right meniscus surgery and breast reduction. Her case was discussed with me in the emergency room. The patient had been seen in psychiatric consultation initially yesterday (this patient was seen by me on 04/06) and it was noted that she has had a past history of bipolar disorder. She had been tearful when initially evaluated, complained about the unbearability of the pain she was experiencing. In the past, the patient has had three suicide attempts, most recently at age 28, at which time she overdosed. The patient had complained of feelings of depression presently and thoughts of dying, but no active suicidal or homicidal thoughts or auditory or visual hallucinations. The patient is presently maintained on 150 mg of Lamictal twice daily and is also receiving pain relief with oxycodone as well as Seroquel 100 mg t.i.d. and 400 mg at bedtime. She had also been on Klonopin 0.5 mg q.i.d., prescribed by her psychiatrist in [place] Dr. Verde who is also maintained on Lamictal 200 mg twice a day, Latuda 60 mg daily, Seroquel 300 t.i.d. and 400 at bedtime. A CBC and differential showed lower RBC of 3.3, hemoglobin 8.8, hematocrit 28.3. An RPR is nonreactive. Urinalysis showed 30 urine protein, small amount of blood. A biochemical profile showed glucose within normal range. Blood pressure 113/74, temperature 99.7, respiratory rate 18. We will continue to monitor with you. Jeremy Guzmán MD/ PhD
[2017-04-07 07:27] LABS: HEMATOCRIT 29.9 % (36.0-48.0); MEAN CORPUSCULAR HEMOGLOBIN 25.8 pg (25.0-35.0); MEAN CORPUSCULAR HGB CONC 30.8 g/dl (31.0-37.0); MEAN PLATELET VOLUME 8.8 fl (7.0-11.0); WHITE BLOOD COUNT 5.8 10^3/ul (4.5-11.0)
[2017-04-07] MEDS: Insulin Reg-LOW-Coverage SC SCH ×4 (07:44→21:37)
[2017-04-07 08:33] LABS: ALKALINE PHOSPHATASE 111 U/L (38-126); ALT/SGPT 44 U/L (7-56); AST/SGOT 37 U/L (14-36); BILIRUBIN,TOTAL 0.3 mg/dL (0.2-1.3); BLOOD UREA NITROGEN 10 mg/dL (7-21); CALCIUM 8.9 mg/dL (8.4-10.5); CARBON DIOXIDE 25 mmol/L (21-33); CHLORIDE 104 mmol/L (98-107); GFR AFRICAN-AMERICAN > 60; GLUCOSE,RANDOM 111 mg/dL (70-110); POTASSIUM 3.7 mmol/L (3.6-5.0); SODIUM 139 mmol/L (132-148); TOTAL PROTEIN 6.3 g/dL (5.8-8.3)
--- NOTE | 2017-04-07 09:06 | CP.PCM.PN ---
Subjective - Date & Time of Evaluation Date of Evaluation: 04/07/17 Time of Evaluation: 09:04 - Subjective Subjective: Pt feeling better. Adequate pain control. Afebrile R knee: dressing changed incision clean and dry minimal erythema Hg 9.2 WBC 5.8 OR cultures pending POD#2 Awaiting culture results ID input for antibiotic regimen Objective - Vital Signs/Intake and Output Vital Signs (last 24 hours): Temp Pulse Resp BP Pulse Ox 98.1 F 99 H 20 112/67 95 04/07/17 08:46 04/07/17 08:46 04/07/17 08:46 04/07/17 08:46 04/07/17 08:46 Intake and Output: 04/07/17 04/07/17 06:59 18:59 Intake Total 900 Output Total 1075 Balance -175 - Medications Medications: Current Medications Acetaminophen (Tylenol 325mg Tab) 650 mg PO Q6H PRN PRN Reason: Fever >100.4 F Last Admin: 04/06/17 11:25 Dose: 650 mg Clonazepam (Klonopin) 0.5 mg PO QID PRN; Protocol PRN Reason: Anxiety Heparin Sodium (Porcine) (Heparin) 5,000 units SC Q12 [facility] PRN Reason: Protocol Last Admin: 04/06/17 21:37 Dose: 5,000 units Hydromorphone HCl (Dilaudid) 1 mg IVP Q3H PRN PRN Reason: Pain, severe (8-10) Last Admin: 04/07/17 03:48 Dose: 1 mg Hydromorphone HCl (Dilaudid) 0.5 mg IVP Q3H PRN PRN Reason: Pain, moderate (4-7) Meropenem (Merrem Iv 1 Gm Premix) 50 mls @ 100 mls/hr IVPB Q8 [facility] PRN Reason: Protocol Stop: 04/17/17 09:27 Last Admin: 04/07/17 05:19 Dose: 100 mls/hr Daptomycin 590 mg/ Sodium (Chloride) 100 mls @ 200 mls/hr IV Q24H [facility] Stop: 04/17/17 11:01 Last Admin: 04/06/17 11:22 Dose: 200 mls/hr Insulin Human Regular (Humulin R Low) 0 units SC ACHS [facility] PRN Reason: Protocol Last Admin: 04/07/17 07:44 Dose: Not Given Lamotrigine (Lamictal) 100 mg PO BID [facility] Last Admin: 04/06/17 17:11 Dose: 100 mg Lamotrigine (Lamictal) 50 mg PO BID [facility] Last Admin: 04/06/17 17:11 Dose: 50 mg Lamotrigine (Lamictal) 200 mg PO BID [facility] Last Admin: 04/06/17 17:11 Dose: 200 mg Lurasidone Hcl [ (Latuda] 60 Mg) 60 mg PO DAILY [facility] Ondansetron HCl (Zofran Inj) 4 mg IVP ONCE PRN PRN Reason: Nausea/Vomiting Oxycodone/Acetaminophen (Percocet 5/325 Mg Tab) 1 tab PO Q6H PRN PRN Reason: Pain, moderate (4-7) Stop: 04/07/17 16:34 Last Admin: 04/05/17 19:52 Dose: 1 tab Pantoprazole Sodium (Protonix Ec Tab) 40 mg PO ACB [facility] Last Admin: 04/06/17 09:09 Dose: 40 mg Quetiapine Fumarate (Seroquel) 100 mg PO TID [facility] Last Admin: 04/06/17 19:53 Dose: Not Given Quetiapine Fumarate (Seroquel) 400 mg PO HS [facility] Last Admin: 04/06/17 21:38 Dose: 400 mg - Labs Labs: 04/07/17 06:30 04/07/17 08:00 PT 14.2 SECONDS (9.4-12.5) H 04/05/17 05:30 INR 1.28 (0.93-1.08) H 04/05/17 05:30 APTT 25.9 Seconds (25.1-36.5) 04/05/17 05:30
[2017-04-07] MEDS: HYDROmorphone 0.5 mg/0.5 ml ISec IVP PRN ×4 (09:18→21:39)
[2017-04-07] MEDS: Pantoprazole 40 mg EC Tab PO SCH (09:20)
[2017-04-07] MEDS: Lurasidone Hcl [Latuda] 60 MG PO SCH (09:20)
--- NOTE | 2017-04-07 12:50 | CP.PCM.PN ---
Subjective - Date & Time of Evaluation Date of Evaluation: 04/07/17 Time of Evaluation: 07:15 - Subjective Subjective: Patient was seen and examined at bedside. She denies fevers/chills, headaches, numbness/tingling, n/v/d. she does state that her pain has improved since the washout and that she is feeling better in general. she offers no complains or overnight events. Objective - Vital Signs/Intake and Output Vital Signs (last 24 hours): Temp Pulse Resp BP Pulse Ox 98.1 F 99 H 20 112/67 95 04/07/17 08:46 04/07/17 08:46 04/07/17 08:46 04/07/17 08:46 04/07/17 08:46 Intake and Output: 04/07/17 04/07/17 06:59 18:59 Intake Total 900 Output Total 1075 Balance -175 - Medications Medications: Current Medications Acetaminophen (Tylenol 325mg Tab) 650 mg PO Q6H PRN PRN Reason: Fever >100.4 F Last Admin: 04/06/17 11:25 Dose: 650 mg Clonazepam (Klonopin) 0.5 mg PO QID PRN; Protocol PRN Reason: Anxiety Heparin Sodium (Porcine) (Heparin) 5,000 units SC Q12 [facility] PRN Reason: Protocol Last Admin: 04/07/17 09:40 Dose: 5,000 units Hydromorphone HCl (Dilaudid) 1 mg IVP Q3H PRN PRN Reason: Pain, severe (8-10) Last Admin: 04/07/17 03:48 Dose: 1 mg Hydromorphone HCl (Dilaudid) 0.5 mg IVP Q3H PRN PRN Reason: Pain, moderate (4-7) Last Admin: 04/07/17 09:18 Dose: 0.5 mg Meropenem (Merrem Iv 1 Gm Premix) 50 mls @ 100 mls/hr IVPB Q8 [facility] PRN Reason: Protocol Stop: 04/17/17 09:27 Last Admin: 04/07/17 05:19 Dose: 100 mls/hr Daptomycin 590 mg/ Sodium (Chloride) 100 mls @ 200 mls/hr IV Q24H [facility] Stop: 04/17/17 11:01 Last Admin: 04/07/17 11:11 Dose: 200 mls/hr Insulin Human Regular (Humulin R Low) 0 units SC ACHS [facility] PRN Reason: Protocol Last Admin: 04/07/17 12:34 Dose: Not Given Lamotrigine (Lamictal) 100 mg PO BID [facility] Last Admin: 04/07/17 09:19 Dose: 100 mg Lamotrigine (Lamictal) 50 mg PO BID [facility] Last Admin: 04/07/17 09:19 Dose: 50 mg Lamotrigine (Lamictal) 200 mg PO BID [facility] Last Admin: 04/07/17 09:19 Dose: 200 mg Lurasidone Hcl [ (Latuda] 60 Mg) 60 mg PO DAILY [facility] Last Admin: 04/07/17 09:20 Dose: 60 mg Ondansetron HCl (Zofran Inj) 4 mg IVP ONCE PRN PRN Reason: Nausea/Vomiting Oxycodone/Acetaminophen (Percocet 5/325 Mg Tab) 1 tab PO Q6H PRN PRN Reason: Pain, moderate (4-7) Stop: 04/07/17 16:34 Last Admin: 04/05/17 19:52 Dose: 1 tab Pantoprazole Sodium (Protonix Ec Tab) 40 mg PO ACB [facility] Last Admin: 04/07/17 09:20 Dose: 40 mg Quetiapine Fumarate (Seroquel) 100 mg PO TID [facility] Last Admin: 04/07/17 09:34 Dose: Not Given Quetiapine Fumarate (Seroquel) 400 mg PO HS [facility] Last Admin: 04/06/17 21:38 Dose: 400 mg - Labs Labs: 04/07/17 06:30 04/07/17 08:00 PT 14.2 SECONDS (9.4-12.5) H 04/05/17 05:30 INR 1.28 (0.93-1.08) H 04/05/17 05:30 APTT 25.9 Seconds (25.1-36.5) 04/05/17 05:30 - Additional Findings Additional findings: - Constitutional Appears: Well, Non-toxic, No Acute Distress - Head Exam Head Exam: ATRAUMATIC, NORMAL INSPECTION, NORMOCEPHALIC - Eye Exam Eye Exam: Normal appearance - ENT Exam ENT Exam: Mucous Membranes Moist, Normal Exam - Neck Exam Neck Exam: Normal Inspection - Respiratory Exam Respiratory Exam: Clear to Ausculation Bilateral, NORMAL BREATHING PATTERN. absent: Rales, Wheezes - Cardiovascular Exam Cardiovascular Exam: RRR, +S1, +S2 - GI/Abdominal Exam GI & Abdominal Exam: Soft, Normal Bowel Sounds. absent: Distended, Tenderness - Extremities Exam Extremities Exam: Full ROM (R knee mobility is limited), Pedal Edema (improving RLE). absent: Calf Tenderness Additional comments: dressing applied over R knee - Back Exam Back Exam: NORMAL INSPECTION - Neurological Exam Neurological Exam: Alert, Awake. absent: Motor Sensory Deficit - Psychiatric Exam Psychiatric exam: Normal Affect, Normal Mood - Skin Skin Exam: Normal Skin Color, Warm Assessment and Plan - Assessment and Plan (Free Text) Assessment: 42yo female with PMH of bipolar disorder and DM2 who presented with sepsis and right knee pain s/p recent right patellofemoral joint arthroplasty by Dr. Winter on 03/15/17, and s/p right knee arthrotomy w/ I&D POD2. Patient remains afebrile, WBC is unremarkable and pain is improving. Anemia is noted but stable, likely 2/2 chronic disease. Plan: 1. Sepsis 2/2 Right knee cellulitis vs septic arthritis s/p arthroplasty and followup arthrotomy - POD2 for R knee arthrotomy and I&D - tissue specimens from OR were cultured, pending - R knee superficial wound (NOT OR) cultures positive for enterobacter - cont IV antibiotics with Meropenem and Daptomycin d5 - decreasing Dilaudid dose - Tylenol PRN for fevers and Zofran PRN n/v - Sepsis resolved; SIRS criteria no longer met - Blood and urine cultures negative - PT eval recommending home with outpatient PT followup/TCU if needed - TCU eval placed, however, Dr. Winter recommending home with services - Ortho consulted, recs appreciated - ID consulted, recs appreciated 2. Anemia is likely anemia of chronic disease - improving - will continue to monitor 3. Anxiety - Klonopin PRN - Psych consulted, recs appreciated 4. Bipolar disorder - Continue Seroquel, Latuda, Lamictal - Psych consulted, recs appreciated 5. Diabetes mellitus type 2 - Consistent carb diet - Fingersticks ACHS - Humulin ISS - A1C 6 6. GI/DVT Prophylaxis - Protonix/heparin Patient was seen, examined and discussed with attending, Dr. Cain Villa PGY1 Pager # [phone]
--- NOTE | 2017-04-07 16:48 | RAD ---
HISTORY: check placement of PICC COMPARISON: 04/02/2017 FINDINGS: LUNGS: No active pulmonary disease. PLEURA: No significant pleural effusion identified, no pneumothorax apparent. CARDIOVASCULAR: Normal heart size. New left PICC catheter terminating in the region of the superior vena cava. OSSEOUS STRUCTURES: No significant abnormalities. VISUALIZED UPPER ABDOMEN: Normal. OTHER FINDINGS: None. IMPRESSION: New left PICC catheter terminating in the region of the superior vena cava.
--- NOTE | 2017-04-07 20:40 | PN ---
DATE: 04/07/2017 SUBJECTIVE: The patient is in bed, in no acute distress, nontoxic. OBJECTIVE: VITAL SIGNS: Temperature is 98, blood pressure is 112/60, respiratory rate of 20, heart rate of 97. HEENT: Unremarkable. NECK: Supple. LUNGS: Have decreased breath sounds. HEART: Normal S1, S2. ABDOMEN: Soft, nontender. LABORATORY EXAMINATION: Reveals a white count of 5.8, hemoglobin of 9, platelets of 202. Sed rate is 89, and C-reactive protein is greater than 15. Urinalysis is noted, and HIV is negative. Microbiology reveals the OR cultures are pending. The initial superficial cultures are Enterobacter aerogenes, and Dr. Winter's note is reviewed. ASSESSMENT AND PLAN: A 42-year-old female patient with a body mass index of 31, MULTIPLE ALLERGIES TO ERYTHROMYCIN, PENICILLIN, AND SULFA, admitted with diabetes and recent knee replacement, admitted now with severe sepsis and Enterobacter cellulitis, must rule out a prosthetic septic joint. Awaiting for the operative room cultures, on daptomycin and meropenem. Superficial cultures are positive for Enterobacter aerogenes which is pansensitive. We will follow closely with you. Forrest Diallo MD
[2017-04-08] MEDS: HYDROmorphone 2 mg/ml ISec IVP PRN (00:35)
--- NOTE | 2017-04-08 04:00 | PN ---
DATE: 04/07/2017 SUBJECTIVE: The patient is a 42-year-old white female with a history of bipolar disorder. The patient is alert and oriented to three spheres. She describes herself now with having an improved mood as her pain and physical distress has abated somewhat. She indicates she is looking forwarded to going home tomorrow. She is not homicidal, suicidal or psychotic at this juncture. She has been seen earlier by Infectious Disease (Dr. Diallo), who has been treating her severe sepsis and Enterobacter cellulitis. PHYSICAL EXAMINATION: VITAL SIGNS: Temperature 98, blood pressure 112/60, respiratory rate 20, and heart rate 97. Psychotropically, the patient is on Dilaudid p.r.n., Klonopin 0.5 q.i.d., p.r.n., Lamictal 100 mg b.i.d. and 50 mg b.i.d. and 200 mg b.i.d. and Latuda 60 mg daily, as well as Seroquel 400 mg at bedtime and 100 mg t.i.d. Jeremy Guzmán MD/ PhD
[2017-04-08] MEDS: Meropenem IV 1 gm in NS 50 ML IVPB SCH ×2 (05:23→15:03)
[2017-04-08] MEDS: HYDROmorphone 0.5 mg/0.5 ml ISec IVP PRN ×3 (05:27→15:06)
[2017-04-08 07:03] LABS: ALKALINE PHOSPHATASE 103 U/L (38-126); ALT/SGPT 48 U/L (7-56); AST/SGOT 38 U/L (14-36); BILIRUBIN,TOTAL 0.3 mg/dL (0.2-1.3); BLOOD UREA NITROGEN 9 mg/dL (7-21); CALCIUM 8.9 mg/dL (8.4-10.5); CARBON DIOXIDE 26 mmol/L (21-33); CHLORIDE 104 mmol/L (98-107); GFR AFRICAN-AMERICAN > 60; GLUCOSE,RANDOM 100 mg/dL (70-110); POTASSIUM 3.5 mmol/L (3.6-5.0); SODIUM 140 mmol/L (132-148); TOTAL PROTEIN 6.2 g/dL (5.8-8.3)
[2017-04-08 07:07] LABS: HEMATOCRIT 29.2 % (36.0-48.0); MEAN CELL VOLUME 83.4 fl (80.0-105.0); MEAN CORPUSCULAR HEMOGLOBIN 25.7 pg (25.0-35.0); MEAN CORPUSCULAR HGB CONC 30.8 g/dl (31.0-37.0); MEAN PLATELET VOLUME 8.3 fl (7.0-11.0); RED CELL DISTRIBUTION WIDTH 16.1 % (11.5-14.5)
[2017-04-08 07:34] VITALS: TEMP 98.6
[2017-04-08] MEDS ORDERED: Potassium Chloride 20 mEq ER Tab PO ONE (10:02)
[2017-04-08] MEDS: Insulin Reg-LOW-Coverage SC SCH ×3 (10:11→17:16)
[2017-04-08] MEDS: Pantoprazole 40 mg EC Tab PO SCH (10:13)
[2017-04-08] MEDS: Lurasidone Hcl [Latuda] 60 MG PO SCH (10:25)
--- NOTE | 2017-04-08 13:40 | CP.PCM.PN ---
Subjective - Date & Time of Evaluation Date of Evaluation: 04/08/17 Time of Evaluation: 08:20 - Subjective Subjective: Patient was seen and examined at bedside. She states that she has been feeling much better than before and that the pain has decreased. It is explained to her in depth that her discharge from the hospital is pending the cultures from the OR. The patient understands. Her wishes are to go home and states that she lives with her dad, and that her sister and [id number] lives upstairs and that the sister will be able to provide her with support and care. she denies cp , sob, n/v/d, abdominal pain, changes in urine/bowel habits, dysuria, or frequency. she has had soft stools for the last couple of days but they are not frequent. Objective - Vital Signs/Intake and Output Vital Signs (last 24 hours): Temp Pulse Resp BP Pulse Ox 98.6 F 108 H 20 113/68 97 04/08/17 07:33 04/08/17 07:33 04/08/17 07:33 04/08/17 07:33 04/08/17 07:33 Intake and Output: 04/08/17 04/08/17 06:59 18:59 Intake Total 780 Output Total 700 Balance 80 - Medications Medications: Current Medications Acetaminophen (Tylenol 325mg Tab) 650 mg PO Q6H PRN PRN Reason: Fever >100.4 F Last Admin: 04/06/17 11:25 Dose: 650 mg Clonazepam (Klonopin) 0.5 mg PO QID PRN; Protocol PRN Reason: Anxiety Heparin Sodium (Porcine) (Heparin) 5,000 units SC Q12 KYMBERLY PRN Reason: Protocol Last Admin: 04/08/17 10:09 Dose: 5,000 units Hydromorphone HCl (Dilaudid) 1 mg IVP Q3H PRN PRN Reason: Pain, severe (8-10) Last Admin: 04/08/17 00:35 Dose: 1 mg Hydromorphone HCl (Dilaudid) 0.5 mg IVP Q3H PRN PRN Reason: Pain, moderate (4-7) Last Admin: 04/08/17 10:09 Dose: 0.5 mg Meropenem (Merrem Iv 1 Gm Premix) 50 mls @ 100 mls/hr IVPB Q8 KYMBERLY PRN Reason: Protocol Stop: 04/17/17 09:27 Last Admin: 04/08/17 05:23 Dose: 100 mls/hr Daptomycin 590 mg/ Sodium (Chloride) 100 mls @ 200 mls/hr IV Q24H [facility] Stop: 04/17/17 11:01 Last Admin: 04/08/17 11:46 Dose: 200 mls/hr Insulin Human Regular (Humulin R Low) 0 units SC ACHS [facility] PRN Reason: Protocol Last Admin: 04/08/17 10:11 Dose: Not Given Lamotrigine (Lamictal) 100 mg PO BID [facility] Last Admin: 04/08/17 10:11 Dose: 100 mg Lamotrigine (Lamictal) 50 mg PO BID [facility] Last Admin: 04/08/17 10:12 Dose: 50 mg Lamotrigine (Lamictal) 200 mg PO BID [facility] Last Admin: 04/08/17 10:11 Dose: 200 mg Lurasidone Hcl [ (Latuda] 60 Mg) 60 mg PO DAILY [facility] Last Admin: 04/08/17 10:25 Dose: 60 mg Pantoprazole Sodium (Protonix Ec Tab) 40 mg PO ACB [facility] Last Admin: 04/08/17 10:13 Dose: 40 mg Quetiapine Fumarate (Seroquel) 100 mg PO TID [facility] Last Admin: 04/08/17 10:13 Dose: Not Given Quetiapine Fumarate (Seroquel) 400 mg PO HS [facility] Last Admin: 04/07/17 21:36 Dose: 400 mg - Labs Labs: 04/08/17 05:30 04/08/17 05:30 PT 14.2 SECONDS (9.4-12.5) H 04/05/17 05:30 INR 1.28 (0.93-1.08) H 04/05/17 05:30 APTT 25.9 Seconds (25.1-36.5) 04/05/17 05:30 - Constitutional Appears: Well, Non-toxic, No Acute Distress - Head Exam Head Exam: NORMAL INSPECTION - Eye Exam Eye Exam: EOMI, Normal appearance - ENT Exam ENT Exam: Mucous Membranes Moist, Normal Exam - Neck Exam Neck Exam: Normal Inspection - Respiratory Exam Respiratory Exam: Clear to Ausculation Bilateral, NORMAL BREATHING PATTERN. absent: Rales, Rhonchi, Wheezes - Cardiovascular Exam Cardiovascular Exam: RRR, +S1, +S2. absent: JVD - GI/Abdominal Exam GI & Abdominal Exam: Soft, Normal Bowel Sounds. absent: Distended, Tenderness - Extremities Exam Extremities Exam: Pedal Edema (improving RLE) Additional comments: LUE PICC Line in place R knee in knee immobilizer and is wrapped peda pulses present b/l - Back Exam Back Exam: NORMAL INSPECTION - Neurological Exam Neurological Exam: Alert, Awake, Oriented x3 - Psychiatric Exam Psychiatric exam: Normal Affect, Normal Mood - Skin Skin Exam: Normal Color, Warm Assessment and Plan - Assessment and Plan (Free Text) Assessment: 2yo female with PMH of bipolar disorder and DM2 who presented with sepsis and right knee pain s/p recent right patellofemoral joint arthroplasty by Dr. Winter on 03/15/17, and s/p right knee arthrotomy w/ I&D POD3. Patient remains afebrile, WBC is unremarkable and pain has improved . Anemia is noted but stable, likely 2/2 chronic disease. Cultures from superficial skin on right knee grew enterobacter, however superficial and deep tissue cultures were sent and are pending; pt remains on empiric antibiotics. Discharge is to home on antibiotics (pt has PICC line) once sensitivities return Plan: 1. Sepsis 2/2 Right knee cellulitis vs septic arthritis s/p arthroplasty and followup arthrotomy - POD3 for R knee arthrotomy and I&D - tissue specimens from OR were cultured, growing Gram + cocci - R knee superficial wound (NOT OR) cultures positive for Gram negative rods - cont IV antibiotics with Meropenem and Daptomycin d6 - IVF hydration held due to dilution - Dilaudid and Percocet PRN pain - Tylenol PRN for fevers and Zofran PRN n/v - Sepsis resolved; SIRS criteria no longer met - Blood and urine cultures negative - PT eval recommending home with outpatient PT followup/TCU if needed - Ortho consulted, recs appreciated - ID consulted, recs appreciated - Discharge home once sensitivities come back from tissue culture; Dr. Winter cleared pt for d/c to home 2. Anemia is likely 2/2 chronic disease - currently stable - will continue to monitor 3. Anxiety - Klonopin PRN - Psych consulted, recs appreciated 4. Bipolar disorder - Continue Seroquel, Latuda, Lamictal - Psych consulted, recs appreciated 5. Diabetes mellitus type 2 - Consistent carb diet - Fingersticks ACHS - Humulin ISS - A1C 6 6. GI/DVT Prophylaxis - Protonix/heparin Patient was seen, examined and discussed with attending, Dr. Alvino Villa PGY1 Pager # [phone]
[2017-04-08 17:35] VITALS: BP 115/76; PULSE 98; O2SAT 96
--- NOTE | 2017-04-08 22:17 | PN ---
DATE: 04/08/2017 LOCATION: The patient was seen earlier this morning in room 368, bed #1. SUBJECTIVE: The patient is doing better and has legs pain, she grade her pain is 6/10. PHYSICAL EXAMINATION VITAL SIGNS: Temperature is 98, blood pressure is 130/60, respiratory rate of 20 and heart rate of 104. HEENT: Unremarkable. NECK: Supple. LUNGS: Had decreased breath sounds. HEART: Normal S1 and S2. ABDOMEN: Soft and nontender. LABORATORY DATA: Reveals a white count of 6, hemoglobin of 9 and platelets of 245. Coagulation is noted. Chemistry reveals a BUN of 9 and creatinine of 0.7. Procalcitonin is 1.8. Microbiology; the OR cultures reveals one gram-positive cocci, further identification of sensitivity is pending, the second one is from the right knee cultures, still pending. Chest x-ray is reported. No active disease. ASSESSMENT AND PLAN: A 42-year-old female with body mass index of 31, MULTIPLE ALLERGIES TO ERYTHROMYCIN, PENICILLIN AND SULFA, admitted with diabetes, recent knee replacement, admitted with severe sepsis, Enterobacter cellulitis, and gram-positive cocci from the operative room cultures and prosthetic septic joint, on daptomycin, meropenem. We will follow closely with you. May need removal of the prosthetic joint. Case discussed with Dr. Winter. Awaiting for identification of gram-positive coagulase Staphylococcus and the final culture results. Forrest Diallo MD
--- NOTE | 2017-04-09 05:27 | CP.PCM.DIS ---
Provider - Provider Date of Admission: 04/02/17 18:22 Attending physician: Sylvester Barlow MD Primary care physician: Apolonia Del Rosario MD Time Spent in preparation of Discharge (in minutes): 40 Diagnosis - Discharge Diagnosis (1) Cellulitis of knee Status: Acute (2) Sepsis Status: Resolved (3) Anemia Status: Chronic (4) Anxiety Status: Chronic (5) Bipolar disorder Status: Chronic Hospital Course - Lab Results Lab Results: Micro Results 04/05/17 16:56 Other: Please Indicate Gram Stain - Final 04/05/17 16:56 Other: Please Indicate Tissue Culture - Preliminary Gram Positive Cocci 04/05/17 16:56 Knee - Right Gram Stain - Final 04/02/17 21:00 Knee - Right Gram Stain - Final 04/02/17 21:00 Knee - Right Wound Culture - Final Enterobacter Aerogenes 04/02/17 21:30 Urine Urine Culture - Final No Growth (<1,000 CFU/ML) Most Recent Lab Values WBC 6.0 10^3/ul (4.5-11.0) 04/08/17 05:30 RBC 3.50 10^6/uL (3.5-6.1) 04/08/17 05:30 Hgb 9.0 g/dL (12.0-16.0) L 04/08/17 05:30 Hct 29.2 % (36.0-48.0) L 04/08/17 05:30 MCV 83.4 fl (80.0-105.0) 04/08/17 05:30 MCH 25.7 pg (25.0-35.0) 04/08/17 05:30 MCHC 30.8 g/dl (31.0-37.0) L 04/08/17 05:30 RDW 16.1 % (11.5-14.5) H 04/08/17 05:30 Plt Count 245 10^3/uL (120.0-450.0) 04/08/17 05:30 MPV 8.3 fl (7.0-11.0) 04/08/17 05:30 Gran % 67.1 % (50.0-68.0) 04/06/17 06:30 Lymph % (Auto) 18.6 % (22.0-35.0) L 04/06/17 06:30 Crowley % (Auto) 10.9 % (1.0-6.0) H 04/06/17 06:30 Eos % (Auto) 3.0 % (1.5-5.0) 04/06/17 06:30 Baso % (Auto) 0.4 % (0.0-3.0) 04/06/17 06:30 Gran # 3.39 (1.4-6.5) 04/06/17 06:30 Lymph # 0.9 (1.2-3.4) L 04/06/17 06:30 Crowley # 0.6 (0.1-0.6) 04/06/17 06:30 Eos # 0.2 (0.0-0.7) 04/06/17 06:30 Baso # 0.02 K/mm3 (0.0-2.0) 04/06/17 06:30 Neutrophils % (Manual) 93 % (50.0-70.0) H 04/02/17 16:00 Lymphocytes % (Manual) 5 % (22.0-35.0) L 04/02/17 16:00 Monocytes % (Manual) 2 % (1.0-6.0) 04/02/17 16:00 ESR 89 mm/hr (0.0-20.0) H 04/03/17 06:35 Retic Count 1.25 % (0.5-1.5) 04/04/17 07:30 PT 14.2 SECONDS (9.4-12.5) H 04/05/17 05:30 INR 1.28 (0.93-1.08) H 04/05/17 05:30 APTT 25.9 Seconds (25.1-36.5) 04/05/17 05:30 Sodium 140 mmol/L (132-148) 04/08/17 05:30 Potassium 3.5 mmol/L (3.6-5.0) L 04/08/17 05:30 Chloride 104 mmol/L (98-107) 04/08/17 05:30 Carbon Dioxide 26 mmol/L (21-33) 04/08/17 05:30 Anion Gap 13 (10-20) 04/08/17 05:30 BUN 9 mg/dL (7-21) 04/08/17 05:30 Creatinine 0.7 mg/dl (0.7-1.2) 04/08/17 05:30 Est GFR ( Amer) > 60 04/08/17 05:30 Est GFR (Non-Af Amer) > 60 04/08/17 05:30 POC Glucose (mg/dL) 113 mg/dL (65-110) H 04/08/17 15:36 Random Glucose 100 mg/dL (70-110) 04/08/17 05:30 Hemoglobin A1c 6.0 % (4.2-6.5) 04/02/17 18:30 Calcium 8.9 mg/dL (8.4-10.5) 04/08/17 05:30 Iron 11 ug/dL (45-180) L 04/04/17 07:30 TIBC 211 ug/dL (265-497) L 04/04/17 07:30 % Saturation 5 % (20-55) L 04/04/17 07:30 Ferritin 105.0 ng/mL 04/04/17 07:30 Total Bilirubin 0.3 mg/dL (0.2-1.3) 04/08/17 05:30 AST 38 U/L (14-36) H 04/08/17 05:30 ALT 48 U/L (7-56) 04/08/17 05:30 Alkaline Phosphatase 103 U/L (38-126) 04/08/17 05:30 C-React Prot High Sens > 15.00 mg/L (1.00-3.00) H 04/03/17 10:30 Total Protein 6.2 g/dL (5.8-8.3) 04/08/17 05:30 Albumin 3.1 g/dL (3.0-4.8) 04/08/17 05:30 Globulin 3.1 gm/dL 04/08/17 05:30 Albumin/Globulin Ratio 1.0 (1.1-1.8) L 04/08/17 05:30 Vitamin B12 197 pg/mL (239-931) L 04/04/17 07:30 RBC Folate 689 ng/mL RBC (>280) 04/04/17 07:30 Procalcitonin 1.80 NG/ML (0.19-0.49) H 04/03/17 06:45 Urine Color Yellow (YELLOW) 04/02/17 21:30 Urine Appearance Clear (CLEAR) 04/02/17 21:30 Urine pH 5.5 (4.7-8.0) 04/02/17 21:30 Ur Specific Banks >= 1.030 (1.005-1.035) 04/02/17 21:30 Urine Protein 30 mg/dL (<30 mg/dL) H 04/02/17 21:30 Urine Glucose (UA) Negative mg/dL (NEGATIVE) 04/02/17 21:30 Urine Ketones Negative mg/dL (NEGATIVE) 04/02/17 21:30 Urine Blood Small (NEGATIVE) H 04/02/17 21:30 Urine Nitrate Negative (NEGATIVE) 04/02/17 21:30 Urine Bilirubin Negative (NEGATIVE) 04/02/17 21:30 Urine Urobilinogen 0.2 E.U./dL (<1 E.U./dL) 04/02/17 21:30 Ur Leukocyte Esterase Negative Dali/uL (NEGATIVE) 04/02/17 21:30 Urine RBC 1 - 3 /hpf (0-2) 04/02/17 21:30 Urine WBC 1 - 3 /hpf (0-6) 04/02/17 21:30 Ur Epithelial Cells 3 - 4 /hpf (0-5) 04/02/17 21:30 Urine Bacteria Few (NEG) 04/02/17 21:30 Hyaline Casts 0 - 2 /hpf 04/02/17 21:30 Ur Random Creatinine 308 mg/dL 04/02/17 21:30 Ur Random Sodium 35 meq/L 04/02/17 21:30 Urine HCG, Qual Negative (NEGATIVE) 04/04/17 19:45 HIV 1&2 Ag/Ab, 4th Gen Nonreactive (Nonreactive) 04/03/17 10:30 Blood Type A POSITIVE 04/05/17 05:30 Blood Type Confirm A POSITIVE 04/05/17 08:30 Antibody Screen Negative 04/05/17 05:30 BBK History Checked No verified bt 04/05/17 05:30 - Hospital Course Hospital Course: Ms. Moreau is a 42yo female with PMH of bipolar disorder and DM2 who presented with sepsis, drainage and right knee pain s/p recent right patellofemoral joint arthroplasty by Dr. Winter on 03/15/17. On presentation, the patient met criteria for severe sepsis as she was in SUNITA. aggressive IVF and IV antibiotic therapy began. LE US ruled out DVT. Knee XR showed no gross issues with the implant. ID and ortho were consulted. blood, urine and superficial cultures were sent. SUNITA resolved and patient no longer met SIRS criteria. R knee superfiical cultures grew enterobacter and pt remained on Daptomycin and Meropenem. Swelling and erythema improved. Patient went for R knee arthrotomy and I&D with Dr. Winter as pain did not improve with antiobitcs and pain management. Tissue specimens were taken from OR and sent to culture. PT eval was obtained and recommended home w/ services vs TCU. Patient requested home and discussed with Dr. Winter who agreed. Anemia likely 2/2 chronic disease vs dilution. Psych was consulted at patient's request regarding her anxiety and bipolar disorder. Tissue from OR grew Gram positive cocci. PICC line was placed in LUE, and patient was cleared by DR. Winter and Dr. Diallo for discharge. Patient prescribed Clindamycin, Flagyl and Percocet PRN for pain. Patient will follow up with Dr. Umaña and PMD. On morning of discharge, patient has improved pain, and is able to mobilize the knee better. She states she has good family support at home. Patient is medically optimized for discharge. - Date & Time of H&P Date of H&P: 04/02/17 Time of H&P: 19:24 Discharge Exam - Additional Findings Additional findings: - Constitutional Appears: Well, Non-toxic, No Acute Distress - Head Exam Head Exam: NORMAL INSPECTION - Eye Exam Eye Exam: EOMI, Normal appearance - ENT Exam ENT Exam: Mucous Membranes Moist, Normal Exam - Neck Exam Neck Exam: Normal Inspection - Respiratory Exam Respiratory Exam: Clear to Ausculation Bilateral, NORMAL BREATHING PATTERN. absent: Rales, Rhonchi, Wheezes - Cardiovascular Exam Cardiovascular Exam: RRR, +S1, +S2. absent: JVD - GI/Abdominal Exam GI & Abdominal Exam: Soft, Normal Bowel Sounds. absent: Distended, Tenderness - Extremities Exam Extremities Exam: Pedal Edema (improving RLE) Additional comments: LUE PICC Line in place R knee in knee immobilizer and is wrapped pedal pulses present b/l RLE swelling drastically improved - Back Exam Back Exam: NORMAL INSPECTION - Neurological Exam Neurological Exam: Alert, Awake, Oriented x3 - Psychiatric Exam Psychiatric exam: Normal Affect, Normal Mood - Skin Skin Exam: Normal Color, Warm Discharge Plan - Discharge Medications Prescriptions: Lurasidone HCl [Latuda] 60 mg PO DAILY #14 tablet Metronidazole [Flagyl] 500 mg PO TID 7 Days #21 tablet oxyCODONE/Acetaminophen [Percocet 5/325 mg Tab] 1 tab PO Q6 PRN #20 tab PRN Reason: Pain, Severe (8-10) - Follow Up Plan Condition: FAIR Disposition: HOME/ ROUTINE Instructions: Knee Replacement (DC) Additional Instructions: - please follow up with Dr. Winter within 1 week of discharge - please follow up with your PMD within 2 weeks of discharge - if you experience any new or worsening pain, numbness/tingling, fevers/chills , or persistent difficulty ambulating, please return to ER for eval Referrals: René Winter MD [Staff Provider] - Apolonia Del Rosario MD [Primary Care Provider] -
== END 2017-04-08 18:09 | disposition home or self-care (01) | DRG 856 ==
LOC: ED 14:55 → ERH 18:22 → 3RNO 21:52
PROVIDERS: ADMIT Internal Medicine; ATTEND Internal Medicine
PROC: 3E0T3BZ Introduction of Anesthetic Agent into Peripheral Nerves and Plexi, Percutaneous Approach (ICD-10-PCS; 2017-04-05)
PROC: 0J9N0ZZ Drainage of Right Lower Leg Subcutaneous Tissue and Fascia, Open Approach (ICD-10-PCS; principal; 2017-04-05 14:45)
PROC: 02HV33Z Insertion of Infusion Device into Superior Vena Cava, Percutaneous Approach (ICD-10-PCS; 2017-04-07)
DX: T81.4XXA Infection following a procedure, initial encounter (principal); A41.9 Sepsis, unspecified organism; R65.20 Severe sepsis without septic shock; L03.115 Cellulitis of right lower limb; N17.9 Acute kidney failure, unspecified; E11.9 Type 2 diabetes mellitus without complications; D63.8 Anemia in other chronic diseases classified elsewhere; I10 Essential (primary) hypertension; F31.9 Bipolar disorder, unspecified; G43.909 Migraine, unspecified, not intractable, without status migrainosus; K21.9 Gastro-esophageal reflux disease without esophagitis; E86.0 Dehydration; E87.6 Hypokalemia; F41.9 Anxiety disorder, unspecified; J45.909 Unspecified asthma, uncomplicated; E66.9 Obesity, unspecified; Z68.31 Body mass index [BMI] 31.0-31.9, adult; Y83.8 Other surgical procedures as the cause of abnormal reaction of the patient, or of later complication, without mention of misadventure at the time of the procedure; Z79.899 Other long term (current) drug therapy; Z90.49 Acquired absence of other specified parts of digestive tract; Z88.0 Allergy status to penicillin; Z88.1 Allergy status to other antibiotic agents; Z88.2 Allergy status to sulfonamides; Z87.891 Personal history of nicotine dependence

== ENCOUNTER 2018-06-21 08:40 | Outpatient (CLI) | payer MEDICARE | END 2018-06-21 08:41 | disposition home or self-care (01) | LOC: RAD 08:40 ==

== ENCOUNTER 2018-06-26 07:53 | Outpatient (CLI) | payer MEDICARE | END 2018-06-26 07:54 | disposition home or self-care (01) | LOC: RAD 07:53 ==

== ENCOUNTER 2018-06-29 08:36 | Outpatient (CLI) | payer MEDICARE | END 2018-06-29 08:37 | disposition home or self-care (01) | LOC: RAD 08:36 ==